=== PATIENT | male | born 1970 | race Caucasian/White ===

== ENCOUNTER 2018-04-24 23:24 | Inpatient (IN) | payer BC ==
[2018-04-24] MEDS ORDERED: SODIUM CHLORIDE 0.9% 1,000 ML IV STA (23:29)
--- NOTE | 2018-04-24 23:34 | ED ---
Chest Pain HPI - General Stated Complaint: Chest Pain Time Seen by Provider: 04/24/18 23:29 Source: patient, family Mode of arrival: EMS Limitations: no limitations - History of Present Illness Initial Comments: Raman Kelly is a 48-year-old gentleman who presents to the emergency department today from an outside facility for evaluation of chest pain and elevated troponin. He reports that he was sitting relaxing talking on the telephone when he developed left-sided chest pain. He reports he thought the pain would go away so he waited approximately an hour before seeking care at an outside hospital. Evaluation at the outside hospital revealed a normal chest x-ray, mildly elevated troponin. Patient does have a history of hypertension hyperlipidemia and cigarette smoking given his age and risk factors he was placed on heparin for possible N STEMI. Patient was treated with oral doses of fentanyl however nitro was not given due to persistent hypotension. Patient was transferred to our facility for evaluation. Patient reports that his pain improves with fentanyl but returns within one hour. Pain is described as left- sided pressure and discomfort. Pain when his severe is 8 out of 10 intensity and after fentanyl will decrease to approximately 3 or 4. He is never pain- free. denies any associated symptoms including shortness of breath, lightheadedness, diaphoresis or abdominal pain or change in bowel or bladder habits. - Related Data Allergies Allergy/AdvReac Type Severity Reaction Status Date / Time No Known Allergies Allergy Verified 04/24/18 23:33 Review of Systems ROS Statement: Those systems with pertinent positive or pertinent negative responses have been documented in the HPI. ROS Other: All systems not noted in ROS Statement are negative. EKG Findings - EKG Comments: EKG Findings:: EKG obtained at 2331, rate is 53, rhythm is sinus bradycardia, there is a normal axis, there are normal intervals, there are no acute ST elevations or depressions, there is no evidence of acute ischemia or infarction. A repeat. Due to some wandering baseline a repeat EKG was obtained at 1132, rate is 53, again rhythm is sinus bradycardia there is normal axis normal intervals no acute ST elevations or depressions or evidence of acute ischemia or infarction. Due to persistent chest pain a repeat EKG was obtained at 1:22 AM, again sinus bradycardia with a rate of 50, normal axis normal intervals no acute ST elevations or depressions no evidence of acute ischemia or infarction Past Medical History Past Medical History: Hypertension History of Any Multi-Drug Resistant Organisms: None Reported Past Surgical History: No Surgical Hx Reported Past Psychological History: No Psychological Hx Reported Smoking Status: Current every day smoker Past Alcohol Use History: None Reported Past Drug Use History: None Reported - Past Family History Father History Unknown: Yes Family Medical History: Unable to Obtain Mother Family Medical History: COPD, Hyperlipidemia General Exam Limitations: no limitations Course Vital Signs 04/24/18 04/24/18 04/24/18 23:27 23:30 23:40 Temperature 98.2 F Pulse Rate 58 L 49 L Respiratory 16 14 Rate Blood Pressure 95/57 95/57 O2 Sat by Pulse 97 94 L 97 Oximetry Chest Pain MDM - MDM Patient care was discussed with transferring physician - 48-year-old male with multiple risk factors presenting with chest pain and mildly elevated troponin started on heparin given aspirin, nitro was held due to hypotension Patient with worsening chest pain and route to the hospital was treated with fentanyl, upon arrival chest pain has improved Repeat labs were ordered Patient with recurrent episodes of chest pain treated with fentanyl, morphine and nitro held due to hypotension Repeat troponin was mildly elevated at 0.6 Patient with recurrent chest pain Patient care was discussed with cardiology on-call Dr. Brizuela at this time I have a high suspicion for acute coronary syndrome despite the patient not having EKG changes. Dr. Brizuela is agreeable with activation of the Dismantler for unstable angina. Disposition Clinical Impression: NSTEMI (non-ST elevated myocardial infarction), Unstable angina Disposition: ADMITTED IP TO THIS [facility] Condition: Serious Time of Disposition: 07:28
[2018-04-24 23:56] LABS: Basophils % (A) 0 %; Eosinophils # (A) 0.1 k/uL (0-0.7); Eosinophils % (A) 1 %; HCT 51.5 % (39.0-53.0); HGB 16.9 gm/dL (13.0-17.5); Lymphocytes # (A) 1.8 k/uL (1.0-4.8); Lymphocytes % (A) 11 %; MCHC 32.7 g/dL (31.0-37.0); MCV 94.8 fL (80.0-100.0); Mean Platelet Volume 8.3; Monocytes # (A) 0.5 k/uL (0-1.0); Monocytes % (A) 3 %; Neutrophils # (A) 14.8 k/uL (1.3-7.7); Neutrophils % (A) 85 %; Platelet Count 277 k/uL (150-450); RBC 5.43 m/uL (4.30-5.90); RDW 14.9 % (11.5-15.5); WBC 17.3 k/uL (3.8-10.6)
[2018-04-25 00:05] LABS: Partial Thromboplastin Time 49.1 sec (22.0-30.0); Prothrombin Time 10.8 sec (9.0-12.0)
[2018-04-25 00:07] LABS: ALT 28 U/L (21-72); AST 32 U/L (17-59); Albumin 3.4 g/dL (3.5-5.0); Alkaline Phosphatase 63 U/L (38-126); Anion Gap 8 mmol/L; Blood Urea Nitrogen 21 mg/dL (9-20); Calcium 8.6 mg/dL (8.4-10.2); Carbon Dioxide 18 mmol/L (22-30); Chloride 114 mmol/L (98-107); Glucose 116 mg/dL (74-99); Magnesium 1.9 mg/dL (1.6-2.3); Sodium 140 mmol/L (137-145); Total Bilirubin 0.6 mg/dL (0.2-1.3); Total Protein 5.9 g/dL (6.3-8.2)
[2018-04-25] MEDS ORDERED: HEPARIN SODIUM,PORCINE 5,000 UNIT/ML 1 ML VIAL IV PRN (00:09)
[2018-04-25] MEDS ORDERED: HEPARIN SOD,PORK IN 0.45% NACL 25,000 UNIT in 0.45% NACL 1 250ML.BAG IV SCH (00:15)
[2018-04-25 00:20] LABS: Potassium 4.9 mmol/L (3.5-5.1)
[2018-04-25 00:30] LABS: Creatine Kinase MB 17.6 ng/mL (0.0-2.4)
[2018-04-25 00:32] LABS: Troponin I 0.697 ng/mL (0.000-0.034)
[2018-04-25] MEDS ORDERED: fentaNYL (PF) 50 MCG/ML 2 ML AMP IVP STA (00:53)
[2018-04-25] MEDS ORDERED: NALOXONE 0.4 MG/ML 1 ML VIAL IV PRN (02:15)
[2018-04-25] MEDS ORDERED: VERAPAMIL 2.5 MG/ML 2 ML AMP ONE (02:27)
[2018-04-25] MEDS ORDERED: LIDOCAINE 1% INJ 10MG/ML (20 ML MDV) ONE (02:27)
[2018-04-25] MEDS ORDERED: HEPARIN SODIUM 1,000 UN/ML (10ML VL) ONE (02:27)
[2018-04-25] MEDS ORDERED: IV FLUID CONTINUATION 1,000 ML IV ONE (02:50)
[2018-04-25] MEDS ORDERED: MIDAZOLAM 2 MG/2 ML VIAL IV ONE (02:54)
[2018-04-25] MEDS ORDERED: LIDOCAINE 1% INJ 10MG/ML (20 ML MDV) SQ ONE (02:56)
[2018-04-25] MEDS ORDERED: fentaNYL (PF) 50 MCG/ML 2 ML AMP ONE (02:59)
[2018-04-25] MEDS: VERAPAMIL SYRINGE (5 MG/10 ML) INTRAARTER ONE ×2 (03:01→03:25)
[2018-04-25] MEDS ORDERED: fentaNYL (PF) 50 MCG/ML 2 ML AMP IV ONE (03:03)
[2018-04-25] MEDS ORDERED: CLOPIDOGREL 75 MG TAB ONE (03:10)
[2018-04-25] MEDS ORDERED: BIVALIRUDIN BOLUS 250 MG/50 ML IV ONE (03:11)
[2018-04-25] MEDS ORDERED: CLOPIDOGREL 75 MG TAB PO ONE (03:11)
[2018-04-25] MEDS ORDERED: BIVALIRUDIN 250 MG in SODIUM CHLORIDE 0.9% 50 ML IV ONE (03:11)
[2018-04-25] MEDS ORDERED: NITROGLYCERIN 1000MCG/10ML SYRINGE INTRACORON ONE (03:16)
[2018-04-25] MEDS ORDERED: IOPAMIDOL-370 125ML BTL INJ ONE (03:26)
[2018-04-25] MEDS ORDERED: ATROPINE SULFATE 0.1 MG/ML 10ML SYRINGE IV PRN (03:34)
[2018-04-25] MEDS ORDERED: NITROGLYCERIN SL TABS 0.4 MG TAB SUBLINGUAL PRN (03:34)
[2018-04-25] MEDS ORDERED: RX INFO: IV CONTRAST WAS GIVEN 1 EACH MISC MISCELLANE PRN (03:34)
[2018-04-25] MEDS ORDERED: ZOLPIDEM 5 MG TAB PO PRN (03:34)
[2018-04-25] MEDS ORDERED: SODIUM CHLORIDE 0.9% 1,000 ML IV SCH (03:45)
--- NOTE | 2018-04-25 03:48 | P.CRDCN ---
History of Present Illness Consult date: 04/25/18 Chief complaint: Chest pain History of present illness: This is a 48-year-old gentleman with a past medical history significant for hypertension as well as significant history of smoking presented to the emergency room complaining of chest discomfort. He was in his usual state of health until earlier today when he started experiencing discomfort in the chest, as a pressure across the chest, without any radiation to the arm or neck or shoulders, but it was associated with cold sweats as well as shortness of breath. No dizziness or lightheadedness. And no syncope. Because of the persistent the chest discomfort he decided to come to the emergency room. In the emergency room, the patient was hypotensive and bradycardic. The patient initial troponin came in to be slightly dehydrated and because of that he was started on heparin IV. The EKG did not show any ischemic ST or T-wave abnormalities beside only nonspecific changes in the high lateral leads. The patient continues to have a chest discomfort in spite of the nitroglycerin as well as pain medication. Because of that we decided to take the patient to cardiac clinical lab technologist. He underwent a heart catheterization and that revealed severe disease involving the distal right coronary artery which is a dominant vessel with a plaque rupture and thrombus formation involving the distal RCA. I did successful aspiration thrombectomy with extraction of large amount of thrombus from the distal RCA and subsequently successful stenting of the distal RCA using a drug-eluting stent with a good angiographic results by the end. The procedure was performed from the right radial approach. By the end of the procedure, the patient was chest pain-free with improvement in the blood pressure as well as heart rate. Past Medical History Past Medical History: Hypertension History of Any Multi-Drug Resistant Organisms: None Reported Past Surgical History: No Surgical Hx Reported Past Psychological History: No Psychological Hx Reported Smoking Status: Current every day smoker Past Alcohol Use History: None Reported Past Drug Use History: None Reported Medications and Allergies Allergies Allergy/AdvReac Type Severity Reaction Status Date / Time No Known Allergies Allergy Verified 04/24/18 23:33 Physical Exam Vitals: Vital Signs Temp Pulse Resp BP Pulse Ox 04/25/18 03:09 98.0 F 58 L 16 91/58 97 04/24/18 23:40 49 L 14 95/57 97 04/24/18 23:30 94 L 04/24/18 23:27 98.2 F 58 L 16 95/57 97 Intake and Output 04/24/18 04/24/18 04/25/18 14:59 22:59 06:59 Intake Total 528.8 Balance 528.8 Intake: IV 528.8 Other: Weight 83.915 kg - Constitutional General appearance: no acute distress - Respiratory Respiratory: bilateral: diminished - Cardiovascular Rhythm: regular Heart sounds: normal: S1, S2 Results 04/24/18 23:35 04/24/18 23:35 Cardiac Enzymes 04/24/18 04/24/18 Range/Units 23:35 23:35 AST 32 (17-59) U/L CK-MB (CK-2) 17.6 H (0.0-2.4) ng/mL Troponin I 0.697 H* (0.000-0.034) ng/mL Coagulation 04/24/18 Range/Units 23:35 PT 10.8 (9.0-12.0) sec APTT 49.1 H (22.0-30.0) sec CBC 04/24/18 Range/Units 23:35 WBC 17.3 H (3.8-10.6) k/uL RBC 5.43 (4.30-5.90) m/uL Hgb 16.9 (13.0-17.5) gm/dL Hct 51.5 (39.0-53.0) % Plt Count 277 (150-450) k/uL Comprehensive Metabolic Panel 04/24/18 Range/Units 23:35 Sodium 140 (137-145) mmol/L Potassium 4.9 (3.5-5.1) mmol/L Chloride 114 H (98-107) mmol/L Carbon Dioxide 18 L (22-30) mmol/L BUN 21 H (9-20) mg/dL Creatinine 0.90 (0.66-1.25) mg/dL Glucose 116 H (74-99) mg/dL Calcium 8.6 (8.4-10.2) mg/dL AST 32 (17-59) U/L ALT 28 (21-72) U/L Alkaline Phosphatase 63 (38-126) U/L Total Protein 5.9 L (6.3-8.2) g/dL Albumin 3.4 L (3.5-5.0) g/dL Current Medications Generic Name Dose Route Start Last Admin Trade Name Freq PRN Reason Stop Dose Admin Al Hydroxide/Mg Hydroxide 30 ml 04/25/18 03:34 Maalox PO Q4HR PRN Heartburn Aspirin 81 mg 04/25/18 09:00 Aspirin PO DAILY [facility] Atorvastatin Calcium 80 mg 04/25/18 21:00 Lipitor PO HS [facility] Atropine Sulfate 0.5 mg 04/25/18 03:34 Atropine IV ONCE PRN Symptomatic Bradycardia Clopidogrel Bisulfate 75 mg 04/26/18 03:34 Plavix PO DAILY [facility] Heparin Sodium (Porcine) 0 unit 04/25/18 00:09 Heparin IV PER PROTOCOL PRN Low PTT Protocol Sodium Chloride 1,000 mls @ 100 mls/hr 04/24/18 23:29 04/24/18 23:46 Saline 0.9% IV 04/25/18 09:28 100 mls/hr .Q10H STA Administration Heparin Sodium/Sodium Chloride 250 mls @ 10 mls/hr 04/25/18 00:15 04/25/18 00 :27 25,000 unit/ Sodium Chloride IV 11.9 units/kg/hr .Q24H TIFFANIE 9.98 mls/hr Administration Protocol Sodium Chloride 1,000 mls @ 100 mls/hr 04/25/18 03:45 Saline 0.9% IV 04/25/18 09:46 .Q10H [facility] Miscellaneous Information 1 each 04/25/18 03:34 Rx Info: Iv Contrast Was Given MISCELLANE 04/27/18 03:34 DAILY PRN Per Protocol Naloxone HCl 0.2 mg 04/25/18 02:15 Narcan IV Q2M PRN Opioid Reversal Nitroglycerin 0.4 mg 04/25/18 03:34 Nitrostat SUBLINGUAL Q5M PRN Chest Pain Zolpidem Tartrate 5 mg 04/25/18 03:34 Ambien PO HS PRN Insomnia Intake and Output 04/24/18 04/24/18 04/25/18 14:59 22:59 06:59 Intake Total 528.8 Balance 528.8 Intake: IV 528.8 Other: Weight 83.915 kg Patient Weight 04/25/18 06:59 Weight 83.915 kg 04/24/18 23:35 04/24/18 23:35 Assessment and Plan Assessment: Assessment #1 acute non-ST deviation myocardial infarction #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 I did not start the patient on any beta benedict or ORTIZ inhibitor at this point because of the marginally low blood pressure. #4 an echocardiogram was Doppler #5 follow-up with the patient. Thank you for allowing us participate in his care. We will continue following up with him
[2018-04-25] MEDS: ASPIRIN 81 MG PO SCH (08:05)
--- NOTE | 2018-04-25 09:45 | CC ---
CARDIAC CATHETERIZATION REPORT DATE OF SERVICE: 04/25/2018 CARDIAC CATHETERIZATION/PERCUTANEOUS CORONARY INTERVENTION: PERFORMING PHYSICIAN: Jairo Brizuela MD, radiology clerk. PROCEDURE PERFORMED: 1. Selective right and left coronary angiogram. 2. Left heart catheterization. 3. Aspiration thrombectomy from the distal right coronary artery with extraction of large thrombus. 4. Successful stenting of the distal right coronary artery using 3.0 x 23 mm Xience LYNDA with an excellent angiographic results and reduction of stenosis from 90% to 0%. INDICATIONS: This is a pleasant 48-year-old gentleman with history of hypertension as well as history of smoking, who presented to the hospital complaining of chest discomfort started earlier today. The troponin came in to be slightly elevated. No ischemic ST or T-wave abnormalities shown on the EKG. Because of the persistent chest discomfort, the patient was taken to the cardiac labor and employment paralegal. APPROACH: Right radial artery. COMPLICATION: None. LEVEL OF SEDATION: Moderate with sedation length of 35 minutes. PROCEDURE DESCRIPTION: After obtaining an informed consent, the patient was brought to cardiac labor and employment paralegal. The right radial artery was cannulated using micropuncture technique. Micropuncture wire passed easily. Then I placed a 6-Azerbaijani sheath in the right radial artery. I gave the patient 2 mg of verapamil IA through the sheath. I did selective right and left coronary angiogram using JR4 and JL3.5 catheters. Left heart catheterization was performed using the JR4 catheter which flipped into the LV then I did pullback across the aortic valve. After that I did after intervene on the right coronary artery. Please see a separate paragraph for that. SELECTIVE CORONARY ANGIOGRAM: 1. The right coronary artery is a large caliber vessel and it is a dominant vessel. The proximal and mid RCA are angiographically normal. The RCA in the midportion gives rise into a large PDA branch which appeared to be angiographically normal. The RCA distally has a tight lesion appeared to be in the range of 90% to 95%. with a large thrombus burden seen as well. This is just before the RCA bifurcates into PDA and PLV branches. 2. The left main is angiographically normal. It bifurcates into the circumflex and left anterior descending artery. 3. The left circumflex is a large caliber vessel. It is a nondominant vessel. The proximal circumflex is normal. It gives rise into a large OM branch which bifurcates into 2 separate branches with mild disease involving that OM1. The circumflex continues after that as a moderate caliber vessel in the AV groove. 4. The left anterior descending artery: The proximal LAD appeared to be angiographically normal. It gives rise into a large first diagonal branch which has intermediate lesion in the proximal portion. The mid LAD and distal LAD are angiographically normal. HEMODYNAMICS: The left ventricular end-diastolic pressure was 12 mmHg without significant gradient across the aortic valve. PCI OF THE RCA: Anticoagulation was initiated using Angiomax. Subsequently I did I did engage the RCA using JR4 guide. A run-through wire was used to wire the right coronary artery. After that I did aspiration thrombectomy from the RCA using an export catheter and I was able to extract significant amount of plaque. After that, I did direct stenting of the lesion using 3.0 x 23 mm Xience drug-eluting stent where the stent was positioned under fluoroscopy guidance and deployed under 14 atmospheres for 20 seconds with the following angiogram showing good angiographic results and reduction of stenosis from 80% to 0%. The procedure was completed without any complication. CONCLUSION: 1. Acute non-ST elevation myocardial infarction. 2. Plaque rupture and thrombus formation involving the distal right coronary artery. 3. Successful stenting of the distal right coronary artery using 3.0 x 23 mm Xience drug-eluting stent with good angiographic results. POSTPROCEDURE MANAGEMENT: 1. Dual anti-platelet therapy. 2. Risk factor modifications. 3. Follow up with the patient. 4. Smoking cessation as well. MMODL / IJN: [id number] /
[2018-04-25] MEDS ORDERED: SODIUM CHLORIDE 0.9% 1,000 ML IV ONE (12:23)
--- NOTE | 2018-04-25 12:56 | XR ---
EXAMINATION TYPE: XR chest 1V portable DATE OF EXAM: 04/25/2018 COMPARISON: NONE HISTORY: Chest pain TECHNIQUE: Single frontal view of the chest is obtained. FINDINGS: There is patchy density right lower lobe which may reflect developing infiltrate. Correlate clinicall y. The cardiac silhouette size is within normal limits. The osseous structures are intact. IMPRESSION: 1. There is patchy density right lower lobe which may reflect developing infiltrate. Correlate clini amanda.
[2018-04-25 13:08] LABS: Basophils # (A) 0.1 k/uL (0-0.2); Basophils % (A) 0 %; Eosinophils # (A) 0.2 k/uL (0-0.7); Eosinophils % (A) 1 %; HCT 48.3 % (39.0-53.0); HGB 15.9 gm/dL (13.0-17.5); Lymphocytes # (A) 2.7 k/uL (1.0-4.8); Lymphocytes % (A) 16 %; MCH 31.6 pg (25.0-35.0); MCHC 32.8 g/dL (31.0-37.0); MCV 96.1 fL (80.0-100.0); Mean Platelet Volume 8.6; Monocytes # (A) 0.7 k/uL (0-1.0); Monocytes % (A) 4 %; Neutrophils # (A) 13.6 k/uL (1.3-7.7); Neutrophils % (A) 77 %; Platelet Count 232 k/uL (150-450); RBC 5.02 m/uL (4.30-5.90); WBC 17.6 k/uL (3.8-10.6)
[2018-04-25 13:16] LABS: ALT 38 U/L (21-72); AST 104 U/L (17-59); Albumin 3.1 g/dL (3.5-5.0); Alkaline Phosphatase 63 U/L (38-126); Anion Gap 5 mmol/L; Blood Urea Nitrogen 18 mg/dL (9-20); Calcium 8.5 mg/dL (8.4-10.2); Carbon Dioxide 19 mmol/L (22-30); Chloride 115 mmol/L (98-107); Glucose 88 mg/dL (74-99); Potassium 4.5 mmol/L (3.5-5.1); Sodium 139 mmol/L (137-145); Total Bilirubin 0.6 mg/dL (0.2-1.3); Total Protein 5.5 g/dL (6.3-8.2)
[2018-04-25] MEDS ORDERED: NICOTINE 21MG/24HR PATCH TRANSDERM STA (14:03)
[2018-04-25] MEDS ORDERED: LEVOFLOXACIN 500MG-D5W PMX 500 MG in DEXTROSE/WATER 1 100ML.BAG IVPB SCH (15:00)
[2018-04-25] MEDS: SODIUM CHLORIDE 0.9% 1,000 ML IV SCH ×3 (15:04→22:30)
[2018-04-25] MEDS ORDERED: ACETAMINOPHEN TAB 325 MG TAB PO PRN (15:23)
[2018-04-25] MEDS: PANTOPRAZOLE 40 MG TABLET PO SCH (16:28)
--- NOTE | 2018-04-25 16:37 | ECHOF ---
Referral Reason:hypotension MEASUREMENTS -------- HEIGHT: 177.8 cm WEIGHT: 83.5 kg BP: 80/48 IVSd: 1.2 cm (0.6 - 1.1) LVIDd: 5.4 cm (3.9 - 5.3) LVPWd: 1.2 cm (0.6 - 1.1) IVSs: 1.4 cm LVIDs: 3.9 cm LVPWs: 1.4 cm RVIDd: 2.7 cm (< 3.3) LAESV Index (A-L): 19.14 ml/m Ao Diam: 3.5 cm (2.0 - 3.7) AV Cusp: 2.0 cm (1.5 - 2.6) EPSS: 0.7 cm MV E Santi: 0.99 m/s MV DecT: 243 ms MV A Santi: 0.48 m/s MV E/A Ratio: 2.06 RAP: 15.00 mmHg RVSP: 22.25 mmHg MV EF SLOPE: 125.07 mm/s (70 - 150) MV EXCURSION: 2.22 cm (> 18.000) FINDINGS -------- Resting bradycardia (HR<60bpm). This was a technically adequate study. The left ventricular size is normal. There is mild concentric left ventricular hypertrophy. Overa ll left ventricular systolic function is normal with, an EF between 55 - 60 %. The right ventricle is normal in size and function. Normal LA size by volume 22+/-6 ml/m2. The right atrium is normal in size. Aortic valve is trileaflet and is mildly thickened. There is no evidence of aortic regurgitation. There is no evidence of aortic stenosis. The mitral valve leaflets are mildly thickened. There is trace to mild mitral regurgitation. Trace tricuspid regurgitation present. Right ventricular systolic pressure is normal at < 35 mmHg. There is no evidence of pulmonary hypertension. Trace/mild (physiologic) pulmonic regurgitation. The aortic root size is normal. The inferior vena cava is dilated with poor inspiratory collapse which is consistent with estimated r ight atrial pressure of 20 mmHg. There is no pericardial effusion. CONCLUSIONS -------- 1. Resting bradycardia (HR<60bpm). 2. This was a technically adequate study. 3. The left ventricular size is normal. 4. There is mild concentric left ventricular hypertrophy. 5. Overall left ventricular systolic function is normal with, an EF between 55 - 60 %. 6. Normal LA size by volume 22+/-6 ml/m2. 7. Aortic valve is trileaflet and is mildly thickened. 8. The mitral valve leaflets are mildly thickened. 9. There is trace to mild mitral regurgitation. 10. Trace tricuspid regurgitation present. 11. Right ventricular systolic pressure is normal at < 35 mmHg. 12. There is no evidence of pulmonary hypertension. 13. Trace/mild (physiologic) pulmonic regurgitation. 14. The aortic root size is normal. 15. The inferior vena cava is dilated with poor inspiratory collapse which is consistent with estimat ed right atrial pressure of 20 mmHg. 16. There is no pericardial effusion. [employer]: Dm Toscano RDCS
[2018-04-25] MEDS: MAG HYDROX/AL HYDROX/SIMETH 30 ML CUP PO PRN (20:35)
[2018-04-25] MEDS: DOCUSATE 100 MG CAP PO PRN (20:35)
[2018-04-25] MEDS: ATORVASTATIN 80 MG TAB PO SCH (20:35)
--- NOTE | 2018-04-25 20:57 | XR ---
EXAMINATION TYPE: XR abdomen 1V DATE OF EXAM: 04/25/2018 COMPARISON: NONE HISTORY: Abdominal pain TECHNIQUE: 2 views supine FINDINGS: There is no sign of intestinal obstruction or pneumoperitoneum. Fecal pattern is normal. Shamika ng bases are clear of consolidation. There is some atelectasis in the medial left lower lobe.. There are no pathologic calcifications over the kidneys. IMPRESSION: Nonacute abdomen.
--- NOTE | 2018-04-25 22:24 | P.HPIM ---
History of Present Illness H&P Date: 04/25/18 Chief Complaint: Chest pain Patient is a 48 old male with a known history of hypertension, hyperlipidemia and smoking initially presented to ER at an outside hospital facility with complaints of chest pain. Patient says that he was sitting and talking on the phone and he developed sudden left-sided chest pain. No radiation. Associated with sweating and lightheadedness. No shortness of breath. Patient thought pain would get away and waited for approximately an hour and presented to hospital.Evaluation at the outside hospital revealed a normal chest x-ray, mildly elevated troponin. Patient was transferred to [facility] for further evaluation. Patient was treated with doses of fentanyl and nitro. Patient was hypotensive while in the ER. Patient was seen by cardiology and immediately taken to cardiac catheterization. Patient underwent RCA stenting. Currently patient is hypotensive. Denied any chest pain now Patient is complaining of right lower chest pain and epigastric pain. Patient was given a dose of Maalox. Patient continues to have pain which worsens with deep breathing. Chest x-ray showed right lower lobe patchy density possible early infiltrate. WBC 17.6 on admission Patient does not have any fever or chills. No cough or sputum production. No recent illnesses. No sick contacts at home. No recent travel. Patient is still hypotensive when he was transferred to medical floor. Patient was given a fluid bolus and is being continued on IV fluids in the form of normal saline. Review of Systems Constitutional: Patient denies any fever or chills . No generalized weakness or weight loss. Abdomen: No nausea or vomiting. No diarrhea. Epigastric abdominal pain Cardiovascular: Patient denies any chest pain or short of breath no palpitations. No leg swelling Respiratory: patient denied any cough is from production. No shortness of breath Neurologic: Patient denied any numbness or tingling headache. Musculoskeletal: Patient denies any complaints of joint swelling or deformity. Skin: Negative Psychiatric: Negative Endocrine: No heat or cold intolerance. No recent weight gain. Genitourinary: No dysuria or hematuria. All other 14 point ROS negative except the above Past Medical History Past Medical History: Hypertension History of Any Multi-Drug Resistant Organisms: None Reported Past Surgical History: No Surgical Hx Reported Additional Past Surgical History / Comment(s): pt stated multiple bone fractures with resetting and casts, no surgical procedures. Past Psychological History: No Psychological Hx Reported Smoking Status: Current every day smoker Past Alcohol Use History: None Reported Past Drug Use History: None Reported - Past Family History Father History Unknown: Yes Family Medical History: Unable to Obtain Mother Family Medical History: COPD, Hyperlipidemia Medications and Allergies Home Medications Medication Instructions Recorded Confirmed Type No Known Home Medications 04/25/18 04/25/18 History Allergies Allergy/AdvReac Type Severity Reaction Status Date / Time No Known Allergies Allergy Verified 04/25/18 07:48 Physical Exam Vitals: Vital Signs Temp Pulse Pulse Resp BP BP Pulse Ox 04/25/18 11:45 98.5 F 56 L 16 80/48 94 L 04/25/18 07:50 98.4 F 56 L 14 80/48 92 L 04/25/18 06:19 53 L 15 91/47 94 L 04/25/18 05:19 59 L 16 98/57 97 04/25/18 04:49 55 L 15 97/54 97 04/25/18 04:19 61 15 98/54 98 04/25/18 04:04 97.8 F 61 15 95/52 98 04/25/18 04:00 97.8 F 60 15 97/56 96 04/25/18 03:55 97.8 F 96 16 97/56 96 04/25/18 03:09 98.0 F 58 L 16 91/58 97 04/24/18 23:40 49 L 14 95/57 97 04/24/18 23:30 94 L 04/24/18 23:27 98.2 F 58 L 16 95/57 97 Intake and Output 04/24/18 04/25/18 04/25/18 22:59 06:59 14:59 Intake Total 1528.8 Balance 1528.8 Intake: IV 528.8 Intake, IV Titration 1000 Amount Sodium Chloride 0.9% 1, 1000 000 ml @ 100 mls/hr IV . Q10H [facility] Rx#:[id number] Other: Voiding Method Toilet Toilet # Voids 1 0 Weight 83.91 kg 78.4 kg PHYSICAL EXAMINATION: Patient is lying in the bed comfortably, no acute distress, awake alert and oriented.. HEENT: Normocephalic. Neck is supple. Pupils reactive. Nostrils clear. Oral cavity is moist. Ears reveal no drainage. Neck reveals no JVD, carotid bruits, or thyromegaly. CHEST EXAMINATION: Trachea is central. Symmetrical expansion. Lung valle clear to auscultation and percussion. CARDIAC: Normal S1, S2 with no gallops. No murmurs ABDOMEN: Soft. Bowel sounds normal. No organomegaly. No abdominal bruits. Extremities: reveal no edema. No clubbing or cyanosis Neurologically awake, alert, oriented x3 with well-coordinated movements. No focal deficits noted Skin: No rash or skin lesions. Psychiatric: Coperative. Nonsuicidal Musculoskeletal: No joint swelling or deformity. Normal range of motion. Results CBC & Chem 7: 04/25/18 12:35 04/25/18 12:35 Labs: Abnormal Lab Results - Last 24 Hours (Table) 04/24/18 04/24/18 04/24/18 Range/Units 23:35 23:35 23:35 WBC 17.3 H (3.8-10.6) k/uL Neutrophils # 14.8 H (1.3-7.7) k/uL APTT (22.0-30.0) sec Chloride 114 H (98-107) mmol/L Carbon Dioxide 18 L (22-30) mmol/L BUN 21 H (9-20) mg/dL Glucose 116 H (74-99) mg/dL AST (17-59) U/L CK-MB (CK-2) 17.6 H (0.0-2.4) ng/mL Troponin I 0.697 H* (0.000-0.034) ng/mL Total Protein 5.9 L (6.3-8.2) g/dL Albumin 3.4 L (3.5-5.0) g/dL 04/24/18 04/25/18 04/25/18 Range/Units 23:35 05:34 12:35 WBC 17.6 H (3.8-10.6) k/uL Neutrophils # 13.6 H (1.3-7.7) k/uL APTT 49.1 H 38.8 H (22.0-30.0) sec Chloride (98-107) mmol/L Carbon Dioxide (22-30) mmol/L BUN (9-20) mg/dL Glucose (74-99) mg/dL AST (17-59) U/L CK-MB (CK-2) (0.0-2.4) ng/mL Troponin I (0.000-0.034) ng/mL Total Protein (6.3-8.2) g/dL Albumin (3.5-5.0) g/dL 12/30/18 Range/Units 12:35 WBC (3.8-10.6) k/uL Neutrophils # (1.3-7.7) k/uL APTT (22.0-30.0) sec Chloride 115 H (98-107) mmol/L Carbon Dioxide 19 L (22-30) mmol/L BUN (9-20) mg/dL Glucose (74-99) mg/dL AST 104 H (17-59) U/L CK-MB (CK-2) (0.0-2.4) ng/mL Troponin I (0.000-0.034) ng/mL Total Protein 5.5 L (6.3-8.2) g/dL Albumin 3.1 L (3.5-5.0) g/dL Thrombosis Risk Factor Assmnt - DVT/VTE Prophylaxis DVT/VTE Prophylaxis: Pharmacologic Prophylaxis ordered - Choose All That Apply Any of the Below Risk Factors Present?: Yes Each Factor Represents 1 point: Acute AR, Age 41-60 years Other Risk Factors: No Other congenital or acquired thrombophilia - If yes, enter type in comment: No Thrombosis Risk Factor Assessment Total Risk Factor Score: 2 Thrombosis Risk Factor Assessment Level: Low Risk Assessment and Plan Assessment: Acute non-ST elevated [place] status post cardiac catheterization and stent placement to RCA Coronary artery disease Possible right lower lobe pneumonia with early infiltrate on chest x-ray Epigastric abdominal pain Hypertension Hyperlipidemia Ongoing nicotine addiction DVT prophylaxis plan: Continue with aspirin statins and Plavix. Patient will be continued on IV hydration due to hypotension. Continue with PPI. Antibiotics were added in the form of Levaquin. Continue to follow closely. Further recommendations based on the clinical course. Cardiology is on board. Time with Patient: Greater than 30
[2018-04-25 22:29] LABS: Amylase 33 U/L (30-110); Lipase 43 U/L (23-300)
[2018-04-26] MEDS: MAG HYDROX/AL HYDROX/SIMETH 30 ML CUP PO PRN (04:14)
[2018-04-26] MEDS: CLOPIDOGREL 75 MG TAB PO SCH ×2 (04:14→09:32)
[2018-04-26] MEDS: SODIUM CHLORIDE 0.9% 1,000 ML IV SCH ×2 (04:17→06:33)
[2018-04-26] MEDS: PANTOPRAZOLE 40 MG TABLET PO SCH (06:33)
[2018-04-26 06:39] LABS: Basophils # (A) 0.1 k/uL (0-0.2); Basophils % (A) 0 %; Eosinophils # (A) 0.2 k/uL (0-0.7); Eosinophils % (A) 2 %; HCT 50.2 % (39.0-53.0); HGB 16.3 gm/dL (13.0-17.5); Lymphocytes # (A) 1.9 k/uL (1.0-4.8); Lymphocytes % (A) 14 %; MCHC 32.4 g/dL (31.0-37.0); MCV 95.7 fL (80.0-100.0); Mean Platelet Volume 8.5; Monocytes # (A) 0.6 k/uL (0-1.0); Monocytes % (A) 4 %; Neutrophils # (A) 11.2 k/uL (1.3-7.7); Neutrophils % (A) 80 %; Platelet Count 216 k/uL (150-450); RBC 5.24 m/uL (4.30-5.90); WBC 14.1 k/uL (3.8-10.6)
[2018-04-26 06:52] LABS: Anion Gap 3 mmol/L; Blood Urea Nitrogen 13 mg/dL (9-20); Calcium 8.2 mg/dL (8.4-10.2); Carbon Dioxide 19 mmol/L (22-30); Chloride 118 mmol/L (98-107); Glucose 85 mg/dL (74-99); Potassium 4.3 mmol/L (3.5-5.1); Sodium 140 mmol/L (137-145)
[2018-04-26] MEDS: ASPIRIN 81 MG PO SCH (09:32)
[2018-04-26] MEDS: NICOTINE 21MG/24HR PATCH TRANSDERM SCH (09:32)
[2018-04-26] MEDS: METOPROLOL TARTRATE 12.5 MG TAB PO SCH ×2 (10:11→19:39)
--- NOTE | 2018-04-26 11:55 | P.PN ---
Subjective Progress Note Date: 04/26/18 This is a 48-year-old gentleman with past medical history significant for hypertension and history of smoking. He presented to the hospital with a non-Q-wave myocardial infarction, he was taken to the cardiac catheterization lab by Dr. Taylor where he underwent aspiration thrombectomy with extraction of a large thrombus with successful stenting of the distal right coronary artery. Patient had been quite hypotensive and for this reason was not initiated on a beta benedict. He was seen and examined this morning, denied any chest pain and is breathing overall has been stable. Echocardiogram with Doppler study was performed which revealed an ejection fraction of 55-60%. Blood pressure this morning 108/60, heart rate in the 70s, 92% on room air. Patient feels well this morning, he denies any chest pain or difficulty in breathing, no dizziness or lightheadedness. White blood cell count 14.1, hemoglobin 16.3, platelet count 216. Sodium 140, potassium 4.3, BUN 13, creatinine 0.8. Objective - Vital Signs Vital signs: Vital Signs Temp 97.7 F 04/26/18 08:00 Pulse 77 04/26/18 08:00 Resp 18 04/26/18 08:00 BP 129/78 04/26/18 08:00 Pulse Ox 91 L 04/26/18 08:00 Intake & Output 04/25/18 04/26/18 04/26/18 18:59 06:59 18:59 Intake Total 240 1600 Output Total 200 600 300 Balance 40 1000 -300 Weight 78.4 kg 81.8 kg Intake: Intake, IV Titration 1600 Amount Sodium Chloride 0.9% 1, 1600 000 ml @ 150 mls/hr IV . Q6H40M [facility] Rx#:[id number] Oral 240 Output: Urine 200 600 300 Other: Voiding Method Toilet Toilet Toilet # Voids 0 - Exam PHYSICAL EXAMINATION: GENERAL: 48-year-old gentleman in no acute distress at the time of my examination HEENT: Head is atraumatic, normocephalic. Pupils equal, round. Sclera anicteric. Conjunctiva are clear. Mucous membranes of the mouth are moist. Neck is supple. There is no elevated jugular venous pressure. No carotid bruit is heard. HEART EXAMINATION: Heart S1, S2 normal. No murmur or gallop heard. CHEST EXAMINATION: Lungs reveal decreased air exchange throughout. ABDOMEN: Soft, nontender. Bowel sounds are heard. No organomegaly noted. EXTREMITIES: 2+ peripheral pulses with no evidence of peripheral edema and no calf tenderness noted. Right radial site clean and dry, good distal pulse. NEUROLOGIC patient is awake, alert and oriented 3 . . - Labs CBC & Chem 7: 04/26/18 05:46 04/26/18 05:46 Labs: Abnormal Lab Results - Last 24 Hours (Table) 04/25/18 04/25/18 04/26/18 Range/Units 12:35 12:35 05:46 WBC 17.6 H 14.1 H (3.8-10.6) k/uL Neutrophils # 13.6 H 11.2 H (1.3-7.7) k/uL Chloride 115 H (98-107) mmol/L Carbon Dioxide 19 L (22-30) mmol/L Calcium (8.4-10.2) mg/dL AST 104 H (17-59) U/L Total Protein 5.5 L (6.3-8.2) g/dL Albumin 3.1 L (3.5-5.0) g/dL 04/26/18 Range/Units 05:46 WBC (3.8-10.6) k/uL Neutrophils # (1.3-7.7) k/uL Chloride 118 H (98-107) mmol/L Carbon Dioxide 19 L (22-30) mmol/L Calcium 8.2 L (8.4-10.2) mg/dL AST (17-59) U/L Total Protein (6.3-8.2) g/dL Albumin (3.5-5.0) g/dL Microbiology - Last 24 Hours (Table) 04/24/18 23:42 Blood Culture - Preliminary Blood No Growth after 24 hours Assessment and Plan Plan: Assessment and plan #1 non-Q-wave myocardial infarction, status post angioplasty and stenting of the right coronary artery #2 hyperlipidemia #3 nicotine dependence Plan We will start the patient on a low-dose beta benedict at 12-1/2 mg one tablet by mouth twice a day. Patient has been advised to be up ambulating in the hallway today, we will continue to monitor and plan for discharge home in the next 24- 48 hours if stable. DNP note has been reviewed, I agree with a documented findings and plan of care. Patient was seen and examined.
[2018-04-26] MEDS: LEVOFLOXACIN 500 MG TAB PO SCH (15:34)
[2018-04-26 16:08] VITALS: BMI 25.9
[2018-04-26] MEDS: ATORVASTATIN 80 MG TAB PO SCH (19:39)
[2018-04-27] MEDS: DOCUSATE 100 MG CAP PO PRN (06:39)
[2018-04-27] MEDS: PANTOPRAZOLE 40 MG TABLET PO SCH (06:39)
[2018-04-27] MEDS: NICOTINE 21MG/24HR PATCH TRANSDERM SCH (06:40)
[2018-04-27 06:53] LABS: Basophils # (A) 0.1 k/uL (0-0.2); Basophils % (A) 0 %; Eosinophils # (A) 0.2 k/uL (0-0.7); Eosinophils % (A) 2 %; HCT 49.1 % (39.0-53.0); HGB 15.9 gm/dL (13.0-17.5); Lymphocytes # (A) 1.8 k/uL (1.0-4.8); Lymphocytes % (A) 12 %; MCH 30.7 pg (25.0-35.0); MCHC 32.3 g/dL (31.0-37.0); MCV 95.1 fL (80.0-100.0); Mean Platelet Volume 8.1; Monocytes # (A) 0.6 k/uL (0-1.0); Monocytes % (A) 4 %; Neutrophils # (A) 12.3 k/uL (1.3-7.7); Neutrophils % (A) 82 %; Platelet Count 243 k/uL (150-450); RBC 5.17 m/uL (4.30-5.90); RDW 14.9 % (11.5-15.5); WBC 15.1 k/uL (3.8-10.6)
[2018-04-27] MEDS: ASPIRIN 81 MG PO SCH (08:40)
[2018-04-27] MEDS: CLOPIDOGREL 75 MG TAB PO SCH (08:40)
[2018-04-27] MEDS: METOPROLOL TARTRATE 12.5 MG TAB PO SCH (08:41)
[2018-04-27 08:44] VITALS: RESP 16; TEMP 98.5
[2018-04-27] MEDS ORDERED: METOPROLOL TARTRATE 12.5 MG TAB PO STA (10:07)
[2018-04-27] MEDS: LEVOFLOXACIN 500 MG TAB PO SCH (11:19)
[2018-04-27 11:21] VITALS: BP 116/70; PULSE 75
--- NOTE | 2018-04-27 14:51 | P.PN ---
Subjective Patient is doing well. His blood pressure is improved. He is resting comfortably in bed. He has been ablating in the hallways without any dizziness shortness of breath chest discomfort On examination blood pressure 116/70 mmHg pulse rate in the 70s Heart sounds normal breath sounds are clear no rhonchi no crackles No Arctic murmurs no rub Extended is warm no edema impression Patient was admitted with ST elevation RI status post stenting. Initially his blood pressure is low and therefore we held beta blockers for the first day but now he is on beta blockers he also on dual antiplatelet therapy and statins and he may go home today in follow-up with Dr. Taylor within a week Objective - Vital Signs Vital signs: Vital Signs Temp 98.5 F 04/27/18 08:35 Pulse 75 04/27/18 11:15 Resp 16 04/27/18 11:15 BP 116/70 04/27/18 11:15 Pulse Ox 91 L 04/27/18 11:15 Intake & Output 04/26/18 04/27/18 04/27/18 18:59 06:59 18:59 Intake Total 720 960 360 Output Total 300 Balance 420 960 360 Weight 81.8 kg 80 kg Intake: Oral 720 960 360 Output: Urine 300 Other: Voiding Method Toilet Toilet Toilet # Voids 2 1 - Labs CBC & Chem 7: 04/27/18 06:29 04/26/18 05:46 Labs: Abnormal Lab Results - Last 24 Hours (Table) 04/27/18 Range/Units 06:29 WBC 15.1 H (3.8-10.6) k/uL Neutrophils # 12.3 H (1.3-7.7) k/uL Microbiology - Last 24 Hours (Table) 04/24/18 23:42 Blood Culture - Preliminary Blood No Growth after 48 hours
[2018-04-27] MEDS ORDERED: METOPROLOL TARTRATE 25 MG TAB PO SCH (21:00)
--- NOTE | 2018-05-03 21:34 | P.PN ---
Subjective Progress Note Date: 04/26/18 Principal diagnosis: Acute non-ST elevated [place] Patient is a 48 old male with a known history of hypertension, hyperlipidemia and smoking initially presented to ER at an outside hospital facility with complaints of chest pain. Patient says that he was sitting and talking on the phone and he developed sudden left-sided chest pain. No radiation. Associated with sweating and lightheadedness. No shortness of breath. Patient thought pain would get away and waited for approximately an hour and presented to hospital.Evaluation at the outside hospital revealed a normal chest x-ray, mildly elevated troponin. Patient was transferred to [facility] for further evaluation. Patient was treated with doses of fentanyl and nitro. Patient was hypotensive while in the ER. Patient was seen by cardiology and immediately taken to cardiac catheterization. Patient underwent RCA stenting. Currently patient is hypotensive. Denied any chest pain now Patient is complaining of right lower chest pain and epigastric pain. Patient was given a dose of Maalox. Patient continues to have pain which worsens with deep breathing. Chest x-ray showed right lower lobe patchy density possible early infiltrate. WBC 17.6 on admission Patient does not have any fever or chills. No cough or sputum production. No recent illnesses. No sick contacts at home. No recent travel. Patient is still hypotensive when he was transferred to medical floor. Patient was given a fluid bolus and is being continued on IV fluids in the form of normal saline. On 04/26/2018 Patient denied any complaints of chest pain or shortness of breath today. Saturating well on room air. No headache or dizziness or lightheadedness. Echocardiogram with Doppler study was performed which revealed an ejection fraction of 55-60%. Blood pressure is improved. Patient was started on low-dose beta blockers. Cardiology is following. Otherwise no acute overnight issues Current medications reviewed Objective - Vital Signs Vital signs: Vital Signs Temp 98.5 F 04/27/18 08:35 Pulse 75 04/27/18 11:15 Resp 16 04/27/18 11:15 BP 116/70 04/27/18 11:15 Pulse Ox 91 L 04/27/18 11:15 - Exam PHYSICAL EXAMINATION: Patient is lying in the bed comfortably, no acute distress, awake alert and oriented.. HEENT: Normocephalic. Neck is supple. Pupils reactive. Nostrils clear. Oral cavity is moist. Ears reveal no drainage. Neck reveals no JVD, carotid bruits, or thyromegaly. CHEST EXAMINATION: Trachea is central. Symmetrical expansion. Lung valle clear to auscultation and percussion. CARDIAC: Normal S1, S2 with no gallops. No murmurs ABDOMEN: Soft. Bowel sounds normal. No organomegaly. No abdominal bruits. Extremities: reveal no edema. No clubbing or cyanosis Neurologically awake, alert, oriented x3 with well-coordinated movements. No focal deficits noted Skin: No rash or skin lesions. Psychiatric: Coperative. Nonsuicidal Musculoskeletal: No joint swelling or deformity. Normal range of motion. - Labs CBC & Chem 7: 04/27/18 06:29 04/26/18 05:46 Assessment and Plan Assessment: Acute non-ST elevated [place] status post cardiac catheterization and stent placement to RCA Hypotension. Improved Coronary artery disease Possible right lower lobe pneumonia with early infiltrate on chest x-ray Epigastric abdominal pain Hypertension Hyperlipidemia Ongoing nicotine addiction DVT prophylaxis plan: Continue with aspirin statins and Plavix. I added low-dose beta benedict. Patient will be continued on IV hydration due to hypotension. Continue with PPI. Antibiotics were added in the form of Levaquin. Continue to follow closely. Further recommendations based on the clinical course. Cardiology is on board. Time with Patient: Greater than 30
--- NOTE | 2018-05-03 21:41 | P.DS ---
Providers Date of admission: 04/25/18 02:15 Expected date of discharge: 04/27/18 Attending physician: Sydnie San Consults: 04/25/18 02:15 Consult Physician Stat Consulting Provider: Jairo Brizuela Consult Reason/Comments: UA Do you want consulting provider notified?: Already Contacted 04/25/18 03:34 Consult Physician Routine Consulting Provider: [facility] Consult Reason/Comments: Post Interventional patient Do you want consulting provider notified?: Already Contacted Primary care physician: Stated None Hospital Course: Discharge diagnosis Acute non-ST elevated [place] status post cardiac catheterization and stent placement to RCA Hypotension. Improved Coronary artery disease Possible right lower lobe pneumonia with early infiltrate on chest x-ray Epigastric abdominal pain Hypertension Hyperlipidemia Ongoing nicotine addiction DVT prophylaxis Hospital course Patient is a 48 old male with a known history of hypertension, hyperlipidemia and smoking initially presented to ER at an outside hospital facility with complaints of chest pain. Patient says that he was sitting and talking on the phone and he developed sudden left-sided chest pain. No radiation. Associated with sweating and lightheadedness. No shortness of breath. Patient thought pain would get away and waited for approximately an hour and presented to hospital.Evaluation at the outside hospital revealed a normal chest x-ray, mildly elevated troponin. Patient was transferred to [facility] for further evaluation. Patient was treated with doses of fentanyl and nitro. Patient was hypotensive while in the ER. Patient was seen by cardiology and immediately taken to cardiac catheterization. Patient underwent RCA stenting. Currently patient is hypotensive. Denied any chest pain now Patient is complaining of right lower chest pain and epigastric pain. Patient was given a dose of Maalox. Patient continues to have pain which worsens with deep breathing. Chest x-ray showed right lower lobe patchy density possible early infiltrate. WBC 17.6 on admission Patient does not have any fever or chills. No cough or sputum production. No recent illnesses. No sick contacts at home. No recent travel. Patient was given a fluid bolus and is being continued on IV fluids in the form of normal saline. On 04/26/2018 Patient denied any complaints of chest pain or shortness of breath today. Saturating well on room air. No headache or dizziness or lightheadedness. Echocardiogram with Doppler study was performed which revealed an ejection fraction of 55-60%. Blood pressure is improved. Patient was started on low-dose beta blockers. Cardiology is following. Otherwise no acute overnight issues 04/27/18 Continue with aspirin statins and Plavix. Added with low-dose beta benedict. Patient was continued on IV hydration due to hypotension. Blood pressure improved. Continue with PPI. Antibiotics were continued in the form of Levaquin. Hypotension is much improved now. Patient is asymptomatic. Otherwise patient is stable to be discharged home. PHYSICAL EXAMINATION: Patient is lying in the bed comfortably, no acute distress, awake alert and oriented.. HEENT: Normocephalic. Neck is supple. Pupils reactive. Nostrils clear. Oral cavity is moist. Ears reveal no drainage. Neck reveals no JVD, carotid bruits, or thyromegaly. CHEST EXAMINATION: Trachea is central. Symmetrical expansion. Lung valle clear to auscultation and percussion. CARDIAC: Normal S1, S2 with no gallops. No murmurs ABDOMEN: Soft. Bowel sounds normal. No organomegaly. No abdominal bruits. Extremities: reveal no edema. No clubbing or cyanosis Neurologically awake, alert, oriented x3 with well-coordinated movements. No focal deficits noted Skin: No rash or skin lesions. Psychiatric: Coperative. Nonsuicidal Musculoskeletal: No joint swelling or deformity. Normal range of motion. Discharge vitals reviewed. Patient Condition at Discharge: Serious Plan - Discharge Summary Discharge Rx Participant: No New Discharge Prescriptions: New Aspirin 81 mg PO DAILY #30 chew Clopidogrel [Plavix] 75 mg PO DAILY #30 tab Levofloxacin [Levaquin] 500 mg PO Q24H #2 tab Nitroglycerin Sl Tabs [Nitrostat] 0.4 mg SUBLINGUAL Q5M PRN #30 tab PRN Reason: Chest Pain Pantoprazole [Protonix] 40 mg PO AC-BRKFST #28 tablet. Atorvastatin [Lipitor] 80 mg PO HS #30 tab Metoprolol Tartrate [Lopressor] 25 mg PO BID #60 tab Discharge Medication List Aspirin 81 mg PO DAILY #30 chew 04/27/18 [Rx] Atorvastatin [Lipitor] 80 mg PO HS #30 tab 04/27/18 [Rx] Clopidogrel [Plavix] 75 mg PO DAILY #30 tab 04/27/18 [Rx] Levofloxacin [Levaquin] 500 mg PO Q24H #2 tab 04/27/18 [Rx] Metoprolol Tartrate [Lopressor] 25 mg PO BID #60 tab 04/27/18 [Rx] Nitroglycerin Sl Tabs [Nitrostat] 0.4 mg SUBLINGUAL Q5M PRN #30 tab 04/27/18 [Rx ] Pantoprazole [Protonix] 40 mg PO AC-BRKFST #28 tablet. 04/27/18 [Rx] Follow up Appointment(s)/Referral(s): Willie Adams MD [REFERRING] - 3 Days Jairo Brizuela MD [STAFF PHYSICIAN] - 1 Week None,Stated [Primary Care Provider] - 1-2 days Patient Instructions/Handouts: *Surgery [facility] - After Heart Catheterization - Chief Business Officer Instructions Discharge Disposition: HOME SELF-CARE
== END 2018-04-27 14:51 | disposition home or self-care (01) | DRG 246 ==
LOC: EC 23:24 → 3SCARD 04-25 02:15
PROVIDERS: ADMIT Internal Medicine; ATTEND Internal Medicine
PROC: 4A023N7 Measurement of Cardiac Sampling and Pressure, Left Heart, Percutaneous Approach (ICD-10-PCS; principal; 2018-04-25 02:18)
PROC: 02C03ZZ Extirpation of Matter from Coronary Artery, One Artery, Percutaneous Approach (ICD-10-PCS; principal; 2018-04-25 02:18)
PROC: B2111ZZ Fluoroscopy of Multiple Coronary Arteries using Low Osmolar Contrast (ICD-10-PCS; principal; 2018-04-25 02:18)
PROC: 027034Z Dilation of Coronary Artery, One Artery with Drug-eluting Intraluminal Device, Percutaneous Approach (ICD-10-PCS; principal; 2018-04-25 02:18)
PROC: B2151ZZ Fluoroscopy of Left Heart using Low Osmolar Contrast (ICD-10-PCS; principal; 2018-04-25 02:18)
DX: I21.4 Non-ST elevation (NSTEMI) myocardial infarction (principal); J18.9 Pneumonia, unspecified organism; I25.110 Atherosclerotic heart disease of native coronary artery with unstable angina pectoris; E78.5 Hyperlipidemia, unspecified; E86.0 Dehydration; F17.200 Nicotine dependence, unspecified, uncomplicated; I10 Essential (primary) hypertension; Z82.5 Family history of asthma and other chronic lower respiratory diseases; Z71.6 Tobacco abuse counseling; I95.9 Hypotension, unspecified
CPT/HCPCS: 36415; 71045; 74018; 80048; 80053; 82150; 82533; 82550; 82553; 83605; 83690; 83735; 84484; 85025; 85610; 85730; 87040; 93005; 93306; 93458; 96365; 96366; 96372; 96374; 96375; 96376; 99285; C1874

== ENCOUNTER → 2018-06-21 | Outpatient (CLI) | payer BC ==
[2018-06-21 23:21] LABS: LDL Cholesterol,Calculated 89.2 mg/dL (0.0-131.0); VLDL Calculation 26.8 mg/dL (5.00-40.00)
== END | disposition home or self-care (01) ==
LOC: LABWHC1 15:49
PROVIDERS: ATTEND Nurse Practitioner Adult Health
DX: E78.5 Hyperlipidemia, unspecified (principal)
CPT/HCPCS: 36415; 80061

== ENCOUNTER 2018-12-01 11:51 | Emergency (ER) | payer BC, OTHER ==
[2018-12-01] MEDS ORDERED: DIPH,PERTUS(ACELL)TETVAC-LF 0.5 ML VIAL IM ONE (12:45)
[2018-12-01] MEDS ORDERED: CEPHALEXIN 500MG STARTER PACK 4 CAP BTL PO STA (12:45)
[2018-12-01] MEDS ORDERED: LIDOCAINE 1% INJ 10MG/ML (20 ML MDV) SQ ONE (12:46)
--- NOTE | 2018-12-01 13:08 | XR ---
Left hand HISTORY: Laceration first and second metacarpal 3 views of the left hand There is a metallic foreign body superimposed over the thenar eminence measuring approximately 3 mm i n greatest dimension. There is no evident fracture or dislocation. Bone mineralization, joint spaces and alignment are maintained. IMPRESSION: Radiopaque foreign body.
--- NOTE | 2018-12-01 13:49 | ED ---
Wound/Laceration HPI - General Chief Complaint: Wound/Laceration Stated Complaint: hand injury-[facility] Time Seen by Provider: 12/01/18 12:30 Source: patient, RN notes reviewed, old records reviewed Mode of arrival: ambulatory Limitations: no limitations - History of Present Illness Initial Comments: Patient is a 48 year old male with laceration over left hand from work injury. Patient reports metal blade cut his dorsumo f his hand at thumb. Patient reports he needs TDAP. He reports full ROM of fingers and wrist. - Related Data Home Medications Medication Instructions Recorded Confirmed Rosuvastatin Calcium 40 mg PO DAILY 12/01/18 12/01/18 buPROPion SR [Wellbutrin SR] 150 mg PO BID 12/01/18 12/01/18 Previous Rx's Medication Instructions Recorded Cephalexin [Keflex] 500 mg PO Q8HR #21 cap 12/01/18 Allergies Allergy/AdvReac Type Severity Reaction Status Date / Time No Known Allergies Allergy Verified 12/01/18 13:43 Review of Systems ROS Statement: Those systems with pertinent positive or pertinent negative responses have been documented in the HPI. ROS Other: All systems not noted in ROS Statement are negative. Past Medical History Past Medical History: Hypertension, Myocardial Infarction ([place]) History of Any Multi-Drug Resistant Organisms: None Reported Past Surgical History: No Surgical Hx Reported, Heart Catheterization With Stent Additional Past Surgical History / Comment(s): pt stated multiple bone fractures with resetting and casts, no surgical procedures. Past Psychological History: No Psychological Hx Reported Smoking Status: Current every day smoker Past Alcohol Use History: None Reported Past Drug Use History: None Reported - Past Family History Father History Unknown: Yes Family Medical History: Unable to Obtain Mother Family Medical History: COPD, Hyperlipidemia General Exam - General Exam Comments Initial Comments: This is a 48 year old male. Limitations: no limitations General appearance: alert, in no apparent distress Head exam: Present: atraumatic, normocephalic, normal inspection Eye exam: Present: normal appearance, PERRL, EOMI. Absent: scleral icterus, conjunctival injection, periorbital swelling ENT exam: Present: normal exam, mucous membranes moist Neck exam: Present: normal inspection. Absent: tenderness, meningismus, lymphadenopathy Respiratory exam: Present: normal lung sounds bilaterally. Absent: respiratory distress, wheezes, rales, rhonchi, stridor Cardiovascular Exam: Present: regular rate, normal rhythm, normal heart sounds. Absent: systolic murmur, diastolic murmur, rubs, gallop, clicks GI/Abdominal exam: Present: soft, normal bowel sounds. Absent: distended, tenderness, guarding, rebound, rigid Extremities exam: Present: normal inspection, full ROM, normal capillary refill, other (2cm laceration dorsum of left hand. ). Absent: tenderness, pedal edema, joint swelling, calf tenderness Back exam: Present: normal inspection Neurological exam: Present: alert, oriented X3, CN II-XII intact Psychiatric exam: Present: normal affect, normal mood Course Vital Signs 12/01/18 12/01/18 12:27 14:00 Temperature 97.8 F 98.1 F Pulse Rate 61 78 Respiratory 18 16 Rate Blood Pressure 120/74 132/88 O2 Sat by Pulse 96 96 Oximetry Procedures - Laceration Laceration #1 Size (cm): 2 Description: linear Depth: simple, single layer Anesthetic Used: lidocaine 1% Anesthesia Technique: local infiltration Amount (mls): 3 Pre-repair: wound explored, irrigated extensively Type of Sutures: nylon Size of Sutures: 5-0 Number of Sutures: 2 Patient Tolerated Procedure: well, no complications Additional Comments: Attempt to irrigated to remove foreign body but unable to retreive it. Medical Decision Making - Medical Decision Making 48 year old male presents today with laceration from work injury. Patient was hit with a piece off of a grinder chipper. Patient hand has full ROM. Xrays shows radioopaue foreign body. Attempt to remove foreign body in laceration, but unsuccessful. 2 sutures placed over laceration, and advised patient to follow up with ortho hand specialist for foreign body. Discussed return parameters. - Radiology Data Radiology results: report reviewed Left hand xray shows radiopaque foreign body. No fracture. Disposition Clinical Impression: Hand laceration, Soft tissues foreign body Disposition: HOME SELF-CARE Condition: Good Instructions (If sedation given, give patient instructions): Care For Your Stitches (ED) Additional Instructions: Follow-up with primary care physician. Return to the emergency department if any alarming signs or symptoms occur. Take antibiotic as prescribed. Please return to the emergency room in 8-10 days to have sutures removed. Please leave wound covered for the first 24-48 hours and then leave open to air after that time. Please use clean soap and water to clean the suture area to prevent scabbing over the top of your sutures. Please watch for any signs of infection which may include but not limited to increased pain, swelling, redness, fever or chills. Please return to the emergency room if any signs of infection do occur. Please return to the emergency room for any other concerns or complications. Prescriptions: Cephalexin [Keflex] 500 mg PO Q8HR #21 cap Is patient prescribed a controlled substance at d/c from ED?: No Referrals: None,Stated [Primary Care Provider] - 1-2 days Time of Disposition: 13:48
[2018-12-01 14:04] VITALS: BP 132/88; PULSE 78; RESP 16; TEMP 98.1
== END 2018-12-01 14:00 | disposition home or self-care (01) ==
LOC: EC 11:51
DX: S61.422A Laceration with foreign body of left hand, initial encounter (principal); I25.2 Old myocardial infarction; F17.200 Nicotine dependence, unspecified, uncomplicated; Z23 Encounter for immunization; Z95.5 Presence of coronary angioplasty implant and graft; Z79.899 Other long term (current) drug therapy; W26.8XXA Contact with other sharp object(s), not elsewhere classified, initial encounter; Y92.69 Other specified industrial and construction area as the place of occurrence of the external cause; Y99.0 Civilian activity done for income or pay
CPT/HCPCS: 73130; 90715; 99283; 12001; 90471; J2001

== ENCOUNTER 2019-04-12 08:41 | Observation (INO) | payer BC ==
[2019-04-12] MEDS ORDERED: ASPIRIN 81 MG PO STA (09:04)
[2019-04-12] MEDS ORDERED: NITROGLYCERIN OINT 1 INCH/GM PACKET TOPICAL STA (09:04)
--- NOTE | 2019-04-12 09:09 | ED ---
General Adult HPI - General Chief complaint: Chest Pain Stated complaint: back pain, nausea Time Seen by Provider: 04/12/19 08:45 Source: patient, RN notes reviewed, old records reviewed Mode of arrival: ambulatory Limitations: no limitations - History of Present Illness Initial comments: This is a 49-year-old male who presents emergency department with past medical history significant for hyperlipidemia, high blood pressure and a smoking history. Patient states he comes into the emergency department because of intermittent chest pain on and off for a month. Patient states it's at the bottom of his chest anteriorly and it is more of a discomfort/pressure. Patient states he has had no difficulty breathing with it there is been no radiation of the pain. Patient denies any diaphoretic episodes. Patient denies any nausea. Patient states she's also been experiencing some back pain on the right side just below the scapula. Patient states it hurts to press and it hurts to move. Patient states the pain is been on and off for the last 2 weeks. Patient denies any fever chills or cough. Patient denies any abdominal pain. Patient denies a ny nausea vomiting diarrhea. Patient denies any leg swelling or calf tenderness. - Related Data Home Medications Medication Instructions Recorded Confirmed Rosuvastatin Calcium 40 mg PO DAILY 12/01/18 04/12/19 Aspirin EC [Ecotrin Low Dose] 81 mg PO DAILY 04/12/19 04/12/19 Clopidogrel Bisulfate [Plavix] 75 mg PO DAILY 04/12/19 04/12/19 Metoprolol Tartrate [Lopressor] 25 mg PO BID 04/12/19 04/12/19 Allergies Allergy/AdvReac Type Severity Reaction Status Date / Time bee venom protein (honey bee) Allergy Anaphylaxis Verified 04/12/19 09:49 Review of Systems ROS Statement: Those systems with pertinent positive or pertinent negative responses have been documented in the HPI. ROS Other: All systems not noted in ROS Statement are negative. Past Medical History Past Medical History: Hypertension, Myocardial Infarction ([place]) History of Any Multi-Drug Resistant Organisms: None Reported Past Surgical History: Heart Catheterization With Stent Additional Past Surgical History / Comment(s): pt stated multiple bone fractures with resetting and casts, no surgical procedures. Past Psychological History: No Psychological Hx Reported Smoking Status: Current every day smoker Past Alcohol Use History: None Reported Past Drug Use History: None Reported - Past Family History Father History Unknown: Yes Family Medical History: Unable to Obtain Mother Family Medical History: COPD, Hyperlipidemia General Exam - General Exam Comments Initial Comments: GENERAL: Patient is well-developed and well-nourished. Patient is nontoxic and well- hydrated and is in mild distress. ENT: Neck is soft and supple. No significant lymphadenopathy is noted. Oropharynx is clear. Moist mucous membranes. Neck has full range of motion without eliciting any pain. EYES: The sclera were anicteric and conjunctiva were pink and moist. Extraocular movements were intact and pupils were equal round and reactive to light. Eyelids were unremarkable. PULMONARY: Unlabored respirations. Good breath sounds bilaterally. No audible rales rhonchi or wheezing was noted. CARDIOVASCULAR: There is a regular rate and rhythm without any murmurs gallops or rubs. ABDOMEN: Soft and nontender with normal bowel sounds. SKIN: Skin is clear with no lesions or rashes and otherwise unremarkable. NEUROLOGIC: Patient is alert and oriented x3. Cranial nerves II through XII are grossly intact. Motor and sensory are also intact. Normal speech, volume and content. Symmetrical smile. MUSCULOSKELETAL: Normal extremities with adequate strength and full range of motion. LYMPHATICS: No significant lymphadenopathy is noted PSYCHIATRIC: Normal psychiatric evaluation. Limitations: no limitations Course Vital Signs 04/12/19 04/12/19 04/12/19 08:44 09:13 10:45 Temperature 97.5 F L Pulse Rate 82 80 76 Respiratory 18 16 16 Rate Blood Pressure 126/80 137/93 118/83 O2 Sat by Pulse 98 98 99 Oximetry 04/12/19 11:54 Temperature Pulse Rate 70 Respiratory 16 Rate Blood Pressure 126/81 O2 Sat by Pulse 95 Oximetry Medical Decision Making - Medical Decision Making EKG shows normal sinus rhythm at 72 bpm MN interval 134 QRS is 94 QT interval 36 QTC is 422. Patient's EKG shows no ST segment elevation or depression or T wave abnormalities are noted. I will back into the room to talk about the patient's results and at that point time he indicated to me that he did have a heart attack last year as well as a stent which she did not mention to me initially. I recommended the patient stay in the emergency department he was not sure if he wanted to stay but he was still complaining of some right-sided back pain just below the scapula is reproducible on palpation so I gave him some Toradol. Chest x-ray showed no acute abnormality. Patient was started on heparin in the emergency department. I spoke with some physicians he agreed to admit the patient admitted the patient I wrote admitting orders I consult cardiology. - Lab Data Result diagrams: 04/12/19 09:11 04/12/19 09:11 Lab Results 04/12/19 04/12/19 04/12/19 Range/Units 09:11 09:11 09:11 WBC 14.8 H (3.8-10.6) k/uL RBC 6.77 H (4.30-5.90) m/uL Hgb 20.5 H* (13.0-17.5) gm/dL Hct 60.0 H* (39.0-53.0) % MCV 88.7 (80.0-100.0) fL MCH 30.3 (25.0-35.0) pg MCHC 34.1 (31.0-37.0) g/dL RDW 13.1 (11.5-15.5) % Plt Count 266 (150-450) k/uL Neutrophils % 82 % Lymphocytes % 12 % Monocytes % 4 % Eosinophils % 1 % Basophils % 1 % Neutrophils # 12.0 H (1.3-7.7) k/uL Lymphocytes # 1.8 (1.0-4.8) k/uL Monocytes # 0.5 (0-1.0) k/uL Eosinophils # 0.2 (0-0.7) k/uL Basophils # 0.1 (0-0.2) k/uL PT 11.4 (9.0-12.0) sec INR 1.1 (<1.2) APTT 28.1 (22.0-30.0) sec Sodium 139 (137-145) mmol/L Potassium 4.6 (3.5-5.1) mmol/L Chloride 109 H (98-107) mmol/L Carbon Dioxide 22 (22-30) mmol/L Anion Gap 8 mmol/L BUN 14 (9-20) mg/dL Creatinine 0.88 (0.66-1.25) mg/dL Est GFR (CKD-EPI)AfAm >90 (>60 ml/min/1.73 sqM) Est GFR (CKD-EPI)NonAf >90 (>60 ml/min/1.73 sqM) Glucose 106 H (74-99) mg/dL Calcium 9.9 (8.4-10.2) mg/dL Magnesium 2.1 (1.6-2.3) mg/dL Total Bilirubin 0.7 (0.2-1.3) mg/dL AST 22 (17-59) U/L ALT 17 (4-49) U/L Alkaline Phosphatase 81 (38-126) U/L Troponin I (0.000-0.034) ng/mL Total Protein 7.2 (6.3-8.2) g/dL Albumin 4.3 (3.5-5.0) g/dL Amylase 55 (30-110) U/L Lipase 42 (23-300) U/L Urine Color Urine Appearance (Clear) Urine pH (5.0-8.0) Ur Specific Alvin (1.001-1.035) Urine Protein (Negative) Urine Glucose (UA) (Negative) Urine Ketones (Negative) Urine Blood (Negative) Urine Nitrite (Negative) Urine Bilirubin (Negative) Urine Urobilinogen (<2.0) mg/dL Ur Leukocyte Esterase (Negative) 04/12/19 04/12/19 Range/Units 09:11 09:25 WBC (3.8-10.6) k/uL RBC (4.30-5.90) m/uL Hgb (13.0-17.5) gm/dL Hct (39.0-53.0) % MCV (80.0-100.0) fL MCH (25.0-35.0) pg MCHC (31.0-37.0) g/dL RDW (11.5-15.5) % Plt Count (150-450) k/uL Neutrophils % % Lymphocytes % % Monocytes % % Eosinophils % % Basophils % % Neutrophils # (1.3-7.7) k/uL Lymphocytes # (1.0-4.8) k/uL Monocytes # (0-1.0) k/uL Eosinophils # (0-0.7) k/uL Basophils # (0-0.2) k/uL PT (9.0-12.0) sec INR (<1.2) APTT (22.0-30.0) sec Sodium (137-145) mmol/L Potassium (3.5-5.1) mmol/L Chloride (98-107) mmol/L Carbon Dioxide (22-30) mmol/L Anion Gap mmol/L BUN (9-20) mg/dL Creatinine (0.66-1.25) mg/dL Est GFR (CKD-EPI)AfAm (>60 ml/min/1.73 sqM) Est GFR (CKD-EPI)NonAf (>60 ml/min/1.73 sqM) Glucose (74-99) mg/dL Calcium (8.4-10.2) mg/dL Magnesium (1.6-2.3) mg/dL Total Bilirubin (0.2-1.3) mg/dL AST (17-59) U/L ALT (4-49) U/L Alkaline Phosphatase (38-126) U/L Troponin I <0.012 (0.000-0.034) ng/mL Total Protein (6.3-8.2) g/dL Albumin (3.5-5.0) g/dL Amylase (30-110) U/L Lipase (23-300) U/L Urine Color Yellow Urine Appearance Clear (Clear) Urine pH 6.5 (5.0-8.0) Ur Specific Alvin 1.020 (1.001-1.035) Urine Protein Negative (Negative) Urine Glucose (UA) Negative (Negative) Urine Ketones Negative (Negative) Urine Blood Negative (Negative) Urine Nitrite Negative (Negative) Urine Bilirubin Negative (Negative) Urine Urobilinogen 3.0 (<2.0) mg/dL Ur Leukocyte Esterase Negative (Negative) Critical Care Time Critical Care Time: Yes Total Critical Care Time: 35 Disposition Clinical Impression: Unstable angina Disposition: ADMITTED IP TO THIS HOSP Referrals: None,Stated [Primary Care Provider] - 1-2 days
[2019-04-12 09:41] LABS: Basophils # (A) 0.1 k/uL (0-0.2); Basophils % (A) 1 %; Eosinophils # (A) 0.2 k/uL (0-0.7); Eosinophils % (A) 1 %; Lymphocytes # (A) 1.8 k/uL (1.0-4.8); Lymphocytes % (A) 12 %; MCH 30.3 pg (25.0-35.0); MCHC 34.1 g/dL (31.0-37.0); MCV 88.7 fL (80.0-100.0); Mean Platelet Volume 8.9; Monocytes # (A) 0.5 k/uL (0-1.0); Monocytes % (A) 4 %; Neutrophils % (A) 82 %; Platelet Count 266 k/uL (150-450); RBC 6.77 m/uL (4.30-5.90); RDW 13.1 % (11.5-15.5); WBC 14.8 k/uL (3.8-10.6)
[2019-04-12 09:42] LABS: Appearance,Urine Clear (Clear); Bilirubin,Urine Negative (Negative); Blood,Urine Negative (Negative); Color,Urine Yellow; Glucose,Urine (UA) Negative (Negative); Ketones,Urine Negative (Negative); Leukocyte Esterase,Urine Negative (Negative); Nitrite,Urine Negative (Negative); PH, Urine 6.5 (5.0-8.0); Protein,Urine Negative (Negative)
[2019-04-12 09:43] LABS: HGB 20.5 gm/dL (13.0-17.5); INR 1.1 (<1.2); Partial Thromboplastin Time 28.1 sec (22.0-30.0); Prothrombin Time 11.4 sec (9.0-12.0)
[2019-04-12 09:44] LABS: ALT 17 U/L (4-49); AST 22 U/L (17-59); African American GFR (CKD) >90 (>60 ml/min/1.73 sqM); Albumin 4.3 g/dL (3.5-5.0); Alkaline Phosphatase 81 U/L (38-126); Amylase 55 U/L (30-110); Anion Gap 8 mmol/L; Blood Urea Nitrogen 14 mg/dL (9-20); Calcium 9.9 mg/dL (8.4-10.2); Carbon Dioxide 22 mmol/L (22-30); Chloride 109 mmol/L (98-107); Glucose 106 mg/dL (74-99); Magnesium 2.1 mg/dL (1.6-2.3); Non-African American GFR(CKD) >90 (>60 ml/min/1.73 sqM); Potassium 4.6 mmol/L (3.5-5.1); Sodium 139 mmol/L (137-145); Total Bilirubin 0.7 mg/dL (0.2-1.3); Total Protein 7.2 g/dL (6.3-8.2)
--- NOTE | 2019-04-12 09:50 | XR ---
EXAMINATION TYPE: XR chest 2V DATE OF EXAM: 04/12/2019 COMPARISON: Chest x-ray April 25, 2018 HISTORY: Chest and back pain with nausea. TECHNIQUE: Frontal and lateral views of the chest are obtained. FINDINGS: There is right infrahilar opacity similar to prior study adjacent to right heart border. No pleural effusion or pneumothorax is seen bilaterally . Overlying EKG leads are seen. The cardiac s ilhouette size remains within normal limits. The osseous structures are intact. IMPRESSION: Chronic right infrahilar opacity. No new acute infiltrate.
[2019-04-12] MEDS ORDERED: KETOROLAC 60 MG/2 ML VIAL IVP STA (11:47)
[2019-04-12] MEDS ORDERED: HEPARIN SODIUM,PORCINE 5,000 UNIT/ML 1 ML VIAL IV ONE (12:26)
[2019-04-12] MEDS ORDERED: NITROGLYCERIN SL TABS 0.4 MG TAB SUBLINGUAL PRN (12:28)
[2019-04-12] MEDS ORDERED: NICOTINE 21MG/24HR PATCH TRANSDERM STA (12:30)
[2019-04-12] MEDS ORDERED: SODIUM CHLORIDE 0.9% 1,000 ML IV SCH (12:30)
[2019-04-12] MEDS ORDERED: HEPARIN SOD,PORK IN 0.45% NACL 25,000 UNIT in 0.45% NACL 1 250ML.BAG IV SCH (12:30)
[2019-04-12 15:51] LABS: Reticulocyte % 1.7 % (0.5-2.0)
[2019-04-12 16:00] LABS: Uric Acid 6.4 mg/dL (3.5-8.5)
--- NOTE | 2019-04-12 16:42 | P.CONS ---
History of Present Illness - Reason for Consult Consult date: 04/12/19 increased hemoglobin/hematocrit Requesting physician: Epi Wilson - Chief Complaint right back pain, epigastric discomfort - History of Present Illness Mr. Kelly is a very pleasant 49-year-old male with a history of RCA stenting last year, happening about one month after complete extraction of teeth due to severe dental caries. 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 He denies any other medical history, he has never been told he has abnormal lab values, no family history of blood disorders, no personal Hx of cancer. Patient states reason for coming to the hospital was right-sided back pain, 1 week, progressive, associated with dark urine and urinary frequency. Patient has a history of kidney infections, he states that this is similar to that. Noted constipation, denied fever, night sweats, he does have puritis after a hot shower, he states that he drinks 6-7 glasses of water every day and does not feel he is dehydrated, denies nausea or vomiting, the pain in his back can make him mildly nauseated, he does have epigastric discomfort, feels like a "weight" sitting below his sternum, no abdominal distention, black or bloody stool, hematuria or dysuria, swelling in the lower extremities. Patient denies any other pain, he is a current smoker. Review of Systems 14 point review of systems is negative except as stated in HPI Past Medical History Past Medical History: Coronary Artery Disease (CAD), GERD/Reflux, Hypertension, Myocardial Infarction ([place]) Additional Past Medical History / Comment(s): Multiple bone fractures with resettings/castings, polynephritis. Last Myocardial Infarction Date:: 2017 History of Any Multi-Drug Resistant Organisms: None Reported Past Surgical History: Heart Catheterization With Stent, Tonsillectomy Additional Past Surgical History / Comment(s): pt stated multiple bone fractures with resetting and casts, no surgical procedures. Past Anesthesia/Blood Transfusion Reactions: No Reported Reaction Date of Last Stent Placement:: 2017 Past Psychological History: No Psychological Hx Reported Smoking Status: Current every day smoker - Past Family History Father History Unknown: Yes Family Medical History: Unable to Obtain Mother Family Medical History: COPD, Hyperlipidemia Medications and Allergies Home Medications Medication Instructions Recorded Confirmed Type Rosuvastatin Calcium 40 mg PO DAILY 12/01/18 04/12/19 History Aspirin EC [Ecotrin Low Dose] 81 mg PO DAILY 04/12/19 04/12/19 History Clopidogrel Bisulfate [Plavix] 75 mg PO DAILY 04/12/19 04/12/19 History Metoprolol Tartrate [Lopressor] 25 mg PO BID 04/12/19 04/12/19 History Allergies Allergy/AdvReac Type Severity Reaction Status Date / Time bee venom protein (honey bee) Allergy Anaphylaxis Verified 04/12/19 09:49 Physical Exam Vitals: Vital Signs Temp Pulse Pulse Resp BP BP Pulse Ox 04/12/19 16:29 97.7 F 72 19 117/64 94 L 04/12/19 13:47 97.6 F 63 18 134/81 96 04/12/19 13:00 98.5 F 63 18 119/77 97 04/12/19 12:00 97.9 F 59 L 18 116/74 97 04/12/19 11:54 70 16 126/81 95 04/12/19 10:45 76 16 118/83 99 04/12/19 09:13 80 16 137/93 98 04/12/19 08:44 97.5 F L 82 18 126/80 98 Intake and Output 04/12/19 04/12/19 04/12/19 06:59 14:59 22:59 Intake Total 40 Balance 40 Intake: Amount of Fluid Infused ( 40 ml) Other: Weight 83.915 kg - Constitutional General appearance: average body habitus, cooperative, no acute distress - EENT Eyes: anicteric sclerae, EOMI ENT: hearing grossly normal, normal oropharynx - Neck Neck: no lymphadenopathy - Respiratory Respiratory: bilateral: CTA, diminished - Cardiovascular Rhythm: regular Heart sounds: normal: S1, S2 Abnormal Heart Sounds: no systolic murmur, no diastolic murmur, no rub, no S3 Gallop, no S4 Gallop, no click, no other leg Peripheral Edema: bilateral: None - Gastrointestinal General gastrointestinal: no absent bowel sounds, no decreased bowel sounds, no distended, no hepatomegaly, no hyperactive bowel sounds, normal bowel sounds, no organomegaly, no rigid, no scaphoid, soft, no splenomegaly, no tenderness, no umbilical hernia, no ventral hernia - Integumentary Integumentary: flushed - Neurologic Neurologic: CNII-XII intact - Musculoskeletal Musculoskeletal: strength equal bilaterally - Psychiatric Psychiatric: A&O x's 3, appropriate affect, intact judgment & insight Results CBC & Chem 7: 04/12/19 09:11 04/12/19 09:11 Labs: Abnormal Lab Results - Last 24 Hours (Table) 04/12/19 04/12/19 04/12/19 Range/Units 09:11 09:11 15:21 WBC 14.8 H (3.8-10.6) k/uL RBC 6.77 H (4.30-5.90) m/uL Hgb 20.5 H* (13.0-17.5) gm/dL Hct 60.0 H* (39.0-53.0) % Neutrophils # 12.0 H (1.3-7.7) k/uL APTT 37.5 H (22.0-30.0) sec Chloride 109 H (98-107) mmol/L Glucose 106 H (74-99) mg/dL Chest x-ray: report reviewed Assessment and Plan (1) Elevated hemoglobin Current Visit: Yes Status: Acute Priority: High Code(s): D58.2 - OTHER HEMOGLOBINOPATHIES SNOMED Code(s): 644830821 (2) Elevated hematocrit Current Visit: Yes Status: Acute Priority: High Code(s): R71.8 - OTHER ABNORMALITY OF RED BLOOD CELLS SNOMED Code(s): 081780837 Plan: On chart review from last year patient's hemoglobin and hematocrit were within normal limits. Currently patient is mildly neutrophilic, otherwise CBC and CMP are normal. We'll recheck CBC in the a.m. Multiple labs have been requested to evaluate for PV. Pt is on asa, plavix and heparin. No phlebotomy at this time, await some of the lab results. Will f/u in AM.
--- NOTE | 2019-04-12 17:59 | P.HPIM ---
History of Present Illness H&P Date: 04/12/19 Chief Complaint: right flank pain and chest pain The patient is a 49-year-old male with a past medical history of essential hypertension, coronary artery disease with stenting, hyperlipidemia who is also smoker that presented to the ER via private vehicle with chief complaint of chest pain,the patient reports intermittent episodes of infrasternal and midepigastric discomfort more described as pressure without any radiation. Patient also reports some right flank pain over his kidneys that is worsened by movement with radiation at times into his groin The patient denies any associated diaphoresis denies shortness of breath, denies palpitations presyncope or syncope, denies any focal weakness or slurred speech. the patient reports increased frequency, denies dysuria, denies discharge or genital lesions. patient denies any cough or shortness of breath or wheezing In the ER the patient had a comprehensive workup EKG showed sinus mechanism without any suggestion of acute ischemia, troponin was negative at less than 0.012.white count was 14.8 hemoglobin was 20.5, urinalysis was negative. chest x-ray showed a chronic right infrahilar opacity no new acute infiltrate. plan patient is given a dose of aspirin nitroglycerin/ placed on nicotine patch and s tarted on heparin drip and recommended for admission. Past Medical History Past Medical History: Coronary Artery Disease (CAD), GERD/Reflux, Hypertension, Myocardial Infarction ([place]) Additional Past Medical History / Comment(s): Multiple bone fractures with resettings/castings, polynephritis. Last Myocardial Infarction Date:: 2017 History of Any Multi-Drug Resistant Organisms: None Reported Past Surgical History: Heart Catheterization With Stent, Tonsillectomy Additional Past Surgical History / Comment(s): pt stated multiple bone fractures with resetting and casts, no surgical procedures. Past Anesthesia/Blood Transfusion Reactions: No Reported Reaction Date of Last Stent Placement:: 2017 Smoking Status: Current every day smoker - Past Family History Father History Unknown: Yes Family Medical History: Unable to Obtain Mother Family Medical History: COPD, Hyperlipidemia Medications and Allergies Home Medications Medication Instructions Recorded Confirmed Type Rosuvastatin Calcium 40 mg PO DAILY 12/01/18 04/12/19 History Aspirin EC [Ecotrin Low Dose] 81 mg PO DAILY 04/12/19 04/12/19 History Clopidogrel Bisulfate [Plavix] 75 mg PO DAILY 04/12/19 04/12/19 History Metoprolol Tartrate [Lopressor] 25 mg PO BID 04/12/19 04/12/19 History Allergies Allergy/AdvReac Type Severity Reaction Status Date / Time bee venom protein (honey bee) Allergy Anaphylaxis Verified 04/12/19 09:49 Physical Exam Vitals: Vital Signs Temp Pulse Pulse Resp BP BP Pulse Ox 04/12/19 13:47 97.6 F 63 18 134/81 96 04/12/19 13:00 98.5 F 63 18 119/77 97 04/12/19 12:00 97.9 F 59 L 18 116/74 97 04/12/19 11:54 70 16 126/81 95 04/12/19 10:45 76 16 118/83 99 04/12/19 09:13 80 16 137/93 98 04/12/19 08:44 97.5 F L 82 18 126/80 98 Intake and Output 04/11/19 04/12/19 04/12/19 22:59 06:59 14:59 Intake Total 40 Balance 40 Intake: Amount of Fluid Infused ( 40 ml) Other: Weight 83.915 kg Constitutional: No acute distress, conversant, pleasant Eyes: Anicteric sclerae, moist conjunctiva, no lid-lag, PERRLA ENMT: NC/AT,Oropharynx clear, no erythema, exudates Neck:Supple, FROM, no masses, or JVD, No carotid bruits; No thyromegaly Lungs: Clear to auscultation, Clear to percussion, Normal respiratory effort, no accessory muscle use Cardiovascular: Heart regular in rate and rhythm, No murmurs, gallops, or rubs no peripheral edema Abdominal: Soft Nontender, nom distended, no guarding, no rebound or rigidity, Normoactive bowel sounds No hepatomegaly, No splenomegaly, No palpable mass No abdominal wall hernia noted Skin: Normal temperature, tone, texture, turgor, No induration No subcutaneous nodules, No rash, lesions, No ulcers Extremities:No digital cyanosis No clubbing, Pedal pulses intact and symmetrical Radial pulses intact and symmetrical Normal gait and station, No calf tenderness Psychiatric: Alert and oriented to person, place and time, Appropriate affect Intact judgement Neuro: Muscles Strength 5/5 in all 4 extremities, Sensation to light touch grossly present throughout, Cranial nerves II-XII grossly intact. No focal sensory deficits Results CBC & Chem 7: 04/12/19 09:11 04/12/19 09:11 Labs: Abnormal Lab Results - Last 24 Hours (Table) 04/12/19 04/12/19 Range/Units 09:11 09:11 WBC 14.8 H (3.8-10.6) k/uL RBC 6.77 H (4.30-5.90) m/uL Hgb 20.5 H* (13.0-17.5) gm/dL Hct 60.0 H* (39.0-53.0) % Neutrophils # 12.0 H (1.3-7.7) k/uL Chloride 109 H (98-107) mmol/L Glucose 106 H (74-99) mg/dL Thrombosis Risk Factor Assmnt - Choose All That Apply Any of the Below Risk Factors Present?: Yes Each Factor Represents 1 point: Age 41-60 years, Obesity (BMI >25) Other Risk Factors: No Other congenital or acquired thrombophilia - If yes, enter type in comment: No Thrombosis Risk Factor Assessment Total Risk Factor Score: 2 Thrombosis Risk Factor Assessment Level: Low Risk Assessment and Plan Assessment: atypical chest pain right flank pain leukocytosis Polycythemia CAD with stenting Essential hypertension Dyslipidemia Smoking epigastric pain Plan: the patient is placed in observation anticipated less than 2 midnight stay with atypical chest pain and is more epigastric in nature and right flank pain. Initial workup including EKG was negative for any suggestion of acute ischemia and cardiac enzymes have been negative X1. we'll continue to trend enzymes, ch rosalie lipid panel, we'll discontinue IV heparin continue DUAP therapy. echocardiogram as a been ordered and service dismantler consulted from the ER. we'll order CT abdomen and pelvis as the patient is complaining of right flank pain, d-dimer of note was negative. patient was noted to have leukocytosis and polycythemia will consult hematology to rule out polycythemia rubra vera. Of note urinalysis was negative will check blood culture and recheck morning labs. resume his home medications. continue to follow patient's clinical course CODE STATUS: Full code anticipated discharge: 1-2 days Prophylaxis : Subcu heparin and Protonix
[2019-04-12 19:30] VITALS: RESP 18
[2019-04-12] MEDS: HEPARIN SODIUM,PORCINE 5,000 UNIT/ML 1 ML VIAL SQ SCH (20:34)
[2019-04-12] MEDS: METOPROLOL TARTRATE 25 MG TAB PO SCH (20:34)
[2019-04-12] MEDS: MORPHINE SULFATE 2 MG/ML SYRINGE IVP PRN (22:32)
--- NOTE | 2019-04-12 22:50 | CT ---
EXAMINATION TYPE: CT abdomen pelvis wo con DATE OF EXAM: 04/12/2019 COMPARISON: None HISTORY: Right sided flank pain with urination changes. CT DLP: 516.1 mGycm Automated exposure control for dose reduction was used. Multiple axial sections were obtained from the diaphragm to the floor the pelvis with no contrast. Heart size is normal. There is no pericardial effusion. Lung bases are clear of consolidation. There is no pleural effusion. Liver shows no focal defect. Gallbladder appears normal. Spleen is enlarged and measures 15.5 cm. The re is no pancreatic mass. Bile ducts are not dilated. Stomach is intact. There is no adrenal mass. Kidneys have normal size. There is no hydronephrosis. Ureters are not dilat ed. There is no retroperitoneal adenopathy. I see no definite renal calculus. Bladder distends smoothly. There is mild prostatic calcification. There is no inguinal hernia. There is no mesenteric edema. There is no ascites or free air. There is no sign of a bowel obstructio n. Appendix is posterior and appears normal. The lumbar vertebra have normal spacing and alignment. P osterior elements are intact. There is no compression fracture. Bony pelvis is intact. IMPRESSION: Mild splenomegaly. No renal stone or obstruction. Normal appendix..
[2019-04-12 23:43] LABS: % Iron Saturation 16.57 (15.00-50.00)
[2019-04-12 23:53] LABS: Ferritin 10.5 ng/mL (22.0-322.0)
[2019-04-13] MEDS: MORPHINE SULFATE 2 MG/ML SYRINGE IVP PRN (05:45)
[2019-04-13 05:59] LABS: Cholesterol 101 mg/dL (<200); HDL Cholesterol 32 mg/dL (40-60); LDL Cholesterol,Calculated 50 mg/dL (0-99); Triglycerides 94 mg/dL (<150)
[2019-04-13 06:02] LABS: Basophils # (A) 0.1 k/uL (0-0.2); Basophils % (A) 1 %; Eosinophils # (A) 0.3 k/uL (0-0.7); Eosinophils % (A) 2 %; HGB 19.3 gm/dL (13.0-17.5); Hypochromasia Slight; Lymphocytes # (A) 1.8 k/uL (1.0-4.8); Lymphocytes % (A) 15 %; MCH 29.5 pg (25.0-35.0); MCHC 32.8 g/dL (31.0-37.0); MCV 89.8 fL (80.0-100.0); Mean Platelet Volume 8.9; Monocytes # (A) 0.6 k/uL (0-1.0); Monocytes % (A) 5 %; Neutrophils # (A) 9.6 k/uL (1.3-7.7); Neutrophils % (A) 76 %; Platelet Count 261 k/uL (150-450); RBC 6.55 m/uL (4.30-5.90); RDW 13.1 % (11.5-15.5); WBC 12.6 k/uL (3.8-10.6)
[2019-04-13 06:03] LABS: HCT 58.8 % (39.0-53.0)
[2019-04-13] MEDS ORDERED: PANTOPRAZOLE 40 MG TABLET PO SCH (07:30)
[2019-04-13 08:06] VITALS: BP 111/71; PULSE 65; TEMP 98.2
[2019-04-13] MEDS ORDERED: MAG HYDROX/AL HYDROX/SIMETH 30 ML, HYOSCYAMINE ELIXIR 10 ML, LIDOCAINE VISCOUS 2% 10 ML PO ONE ×3 (08:12)
--- NOTE | 2019-04-13 08:42 | P.CRDCN ---
History of Present Illness History of present illness: HISTORY OF PRESENTING ILLNESS This is a pleasant 49-year-old male past medical history significant for coronary artery disease in the setting of a NSTEMI with thrombectomy and stent placement to the distal RCA, hypertension, dyslipidemia and chronic nicotine dependence. He follows in the office with Dr. Brizuela. We have been asked to see in consultation for chest pain. He states for the previous few days he has been experiencing a constant pain in the right flank region. There are periods of worsening pain when he lays flat that improves when he gets up and moves around. However, the pain never completely subsides. There is some radiation at times to the epigastric region described as a pressure. He denies shortness of breath, dizziness, nausea, vomiting or diaphoresis. He has a history of a kidney infection in the past and states this pain feels similar. He denies urinary urgency, frequency or burning with urination. DIAGNOSTICS EKG reveals sinus mechanism with no acute changes. Chest xray chronic right infrahilar opacity. Laboratory reviewed, WBC 14.8, RBC 6.77, hgb 20.5, plt 266, d-dimer 0.29, sodium 139, potassium 4.6, creatinine 0.88, magnesium 2.1, troponin negative x3, urinalysis unremarkable. Current cardiac medications include plavix 75 mg daily, aspirin 81 mg daily, lopressor 25 mg BID and rosuvastatin 40 mg daily. Most recent echocardiogram 03/2018 reveals preserved LV systolic function with EF 55-60%. Cardiac catheterization 04/25/2018 in the setting of NSTEMI revealed occlusion of the distal RCA with a thromus that was successfully aspirated and then stented. REVIEW OF SYSTEMS At the time of my exam: CONSTITUTIONAL: Denies fever or chills. CARDIOVASCULAR: Denies chest pain, shortness of breath, orthopnea, PND or palpitations. RESPIRATORY: Denies cough. GASTROINTESTINAL: Complains of right flank pain. Denies abdominal pain, diarrhe a, constipation, nausea or vomiting. MUSCULOSKELETAL: Denies myalgias. NEUROLOGIC: Denies numbness, tingling or weakness. ENDOCRINE: Denies fatigue, weight change, polydipsia or polyurina. GENITOURINARY: Denies burning, hematuria or urgency with micturation. HEMATOLOGIC: Denies history of anemia or bleeding. PHYSICAL EXAMINATION Blood pressure 134/81 heart rate 63 afebrile and maintaining oxygen saturation on room air. CONSTITUTIONAL: No apparent distress. HEENT: Head is normocephalic. Pupils are equal, round. Sclerae anicteric. Mucous membranes of the mouth are moist. No JVD. No carotid bruit. CHEST EXAMINATION: Lungs are clear to auscultation. No chest wall tenderness is noted on palpation or with deep breathing. HEART EXAMINATION: Regular rate and rhythm. S1, S2 heard. No murmurs, gallops or rub. ABDOMEN: Soft, nontender. Positive bowel sounds. EXTREMITIES: 2+ peripheral pulses, no lower extremity edema and no calf tenderness. NEUROLOGIC EXAMINATION: Patient is awake, alert and oriented x3. ASSESSMENT Chest pain, atypical. An acute event has been ruled out. Flank pain Leukocytosis Polycythemia History of coronary artery disease s/p successfull PCI of the distal RCA History of myocardial infarction Hypertension Dyslipidemia Chronic nicotine dependence PLAN An acute coronary event has been ruled out. Pain is atypical for angina. Ongoing medical management and evaluation of flank pain. Echo has been obtained and will be reviewed. Stable from a cardiac perspective. He already has an appointment scheduled to see Dr. Brizuela in the office next week. Thank you kindly for this consultation. Nurse Practitioner note has been reviewed, I agree with a documented findings and plan of care. Patient was seen and examined. Past Medical History Past Medical History: Coronary Artery Disease (CAD), GERD/Reflux, Hypertension, Myocardial Infarction ([place]) Additional Past Medical History / Comment(s): Multiple bone fractures with resettings/castings, polynephritis. Last Myocardial Infarction Date:: 2017 History of Any Multi-Drug Resistant Organisms: None Reported Past Surgical History: Heart Catheterization With Stent, Tonsillectomy Additional Past Surgical History / Comment(s): pt stated multiple bone fractures with resetting and casts, no surgical procedures. Past Anesthesia/Blood Transfusion Reactions: No Reported Reaction Date of Last Stent Placement:: 2017 Smoking Status: Current every day smoker - Past Family History Father History Unknown: Yes Family Medical History: Unable to Obtain Mother Family Medical History: COPD, Hyperlipidemia Medications and Allergies Home Medications Medication Instructions Recorded Confirmed Type Rosuvastatin Calcium 40 mg PO DAILY 12/01/18 04/12/19 History Aspirin EC [Ecotrin Low Dose] 81 mg PO DAILY 04/12/19 04/12/19 History Clopidogrel Bisulfate [Plavix] 75 mg PO DAILY 04/12/19 04/12/19 History Metoprolol Tartrate [Lopressor] 25 mg PO BID 04/12/19 04/12/19 History Allergies Allergy/AdvReac Type Severity Reaction Status Date / Time bee venom protein (honey bee) Allergy Anaphylaxis Verified 04/12/19 09:49 Physical Exam Vitals: Vital Signs Temp Pulse Pulse Resp BP BP Pulse Ox 04/12/19 13:47 97.6 F 63 18 134/81 96 04/12/19 13:00 98.5 F 63 18 119/77 97 04/12/19 12:00 97.9 F 59 L 18 116/74 97 04/12/19 11:54 70 16 126/81 95 04/12/19 10:45 76 16 118/83 99 04/12/19 09:13 80 16 137/93 98 04/12/19 08:44 97.5 F L 82 18 126/80 98 Intake and Output 04/11/19 04/12/19 04/12/19 22:59 06:59 14:59 Intake Total 40 Balance 40 Intake: Amount of Fluid Infused ( 40 ml) Other: Weight 83.915 kg Results 04/13/19 05:38 04/12/19 09:11 Cardiac Enzymes 04/12/19 04/12/19 Range/Units 09:11 09:11 AST 22 (17-59) U/L Troponin I <0.012 (0.000-0.034) ng/mL Coagulation 04/12/19 Range/Units 09:11 PT 11.4 (9.0-12.0) sec APTT 28.1 (22.0-30.0) sec CBC 04/12/19 Range/Units 09:11 WBC 14.8 H (3.8-10.6) k/uL RBC 6.77 H (4.30-5.90) m/uL Hgb 20.5 H* (13.0-17.5) gm/dL Hct 60.0 H* (39.0-53.0) % Plt Count 266 (150-450) k/uL Comprehensive Metabolic Panel 04/12/19 Range/Units 09:11 Sodium 139 (137-145) mmol/L Potassium 4.6 (3.5-5.1) mmol/L Chloride 109 H (98-107) mmol/L Carbon Dioxide 22 (22-30) mmol/L BUN 14 (9-20) mg/dL Creatinine 0.88 (0.66-1.25) mg/dL Glucose 106 H (74-99) mg/dL Calcium 9.9 (8.4-10.2) mg/dL AST 22 (17-59) U/L ALT 17 (4-49) U/L Alkaline Phosphatase 81 (38-126) U/L Total Protein 7.2 (6.3-8.2) g/dL Albumin 4.3 (3.5-5.0) g/dL Current Medications Generic Name Dose Route Start Last Admin Trade Name Freq PRN Reason Stop Dose Admin Aspirin 81 mg 04/13/19 09:00 Aspirin PO DAILY [facility] Atorvastatin Calcium 80 mg 04/13/19 09:00 Lipitor PO DAILY [facility] Clopidogrel Bisulfate 75 mg 04/13/19 09:00 Plavix PO DAILY [facility] Heparin Sodium/Sodium Chloride 250 mls @ 10.07 mls/hr 04/12/19 12:30 04/12/19 12:41 25,000 unit/ Sodium Chloride IV 12 units/kg/hr .Q24H TIFFANIE 10.07 mls/hr Administration Protocol 12 UNITS/KG/HR Sodium Chloride 1,000 mls @ 20 mls/hr 04/12/19 12:30 04/12/19 12:44 Saline 0.9% IV 20 mls/hr .Q24H TIFFANIE Administration Metoprolol Tartrate 25 mg 04/12/19 21:00 Lopressor PO BID [facility] Nitroglycerin 0.4 mg 04/12/19 12:28 Nitrostat SUBLINGUAL Q5M PRN Chest Pain Intake and Output 04/11/19 04/12/19 04/12/19 22:59 06:59 14:59 Intake Total 40 Balance 40 Intake: Amount of Fluid Infused ( 40 ml) Other: Weight 83.915 kg Patient Weight 04/13/19 06:59 Weight 83.915 kg 04/12/19 09:11 04/12/19 09:11
[2019-04-13] MEDS ORDERED: ATORVASTATIN 80 MG TAB PO SCH (09:00)
[2019-04-13] MEDS ORDERED: NICOTINE 21MG/24HR PATCH TRANSDERM SCH (09:00)
[2019-04-13] MEDS ORDERED: ASPIRIN 81 MG PO SCH (09:00)
[2019-04-13] MEDS ORDERED: ASPIRIN 325 MG TAB PO SCH (09:00)
[2019-04-13] MEDS ORDERED: CLOPIDOGREL 75 MG TAB PO SCH (09:00)
[2019-04-13] MEDS: METOPROLOL TARTRATE 25 MG TAB PO SCH (09:25)
[2019-04-13] MEDS: HEPARIN SODIUM,PORCINE 5,000 UNIT/ML 1 ML VIAL SQ SCH (09:26)
[2019-04-13] MEDS ORDERED: NAPROXEN 250 MG TAB PO STA (10:11)
--- NOTE | 2019-04-13 12:33 | ECHOF ---
Referral Reason:chest pain/cad MEASUREMENTS -------- HEIGHT: 175.3 cm WEIGHT: 83.9 kg BP: 116/74 RVIDd: 3.1 cm (< 3.3) IVSd: 1.1 cm (0.6 - 1.1) LVIDd: 5.2 cm (3.9 - 5.3) LVPWd: 0.9 cm (0.6 - 1.1) IVSs: 1.5 cm LVIDs: 3.7 cm LVPWs: 1.5 cm LA Diam: 3.2 cm (2.7 - 3.8) LAESV Index (A-L): 15.54 ml/m Ao Diam: 2.7 cm (2.0 - 3.7) AV Cusp: 2.1 cm (1.5 - 2.6) MV EXCURSION: 19.176 mm (> 18.000) MV EF SLOPE: 94 mm/s (70 - 150) EPSS: 1.2 cm MV E Santi: 1.01 m/s MV DecT: 188 ms MV A Santi: 0.68 m/s MV E/A Ratio: 1.48 RAP: 15.00 mmHg RVSP: 33.88 mmHg FINDINGS -------- Sinus rhythm. This was a technically good study. The left ventricular size is normal. Left ventricular wall thickness is normal. Overall left vent ricular systolic function is low-normal with, an EF between 50 - 55 %. Apical anterior LV wall zenon on is hypokinetic. The right ventricle is normal in size. Normal LA size by volume 22+/-6 ml/m2. The right atrium is normal in size. Interatrial and interventricular septum intact. The aortic valve is trileaflet and appears structurally normal. There is trace mitral regurgitation. Mild tricuspid regurgitation present. There is borderline pulmonary hypertension. The right ventr icular systolic pressure, as measured by Doppler, is 33.88mmHg. The pulmonic valve was not well visualized. The aortic root size is normal. Normal inferior vena cava with less than 50% inspiratory collapse consistent with estimated right atr ial pressure of 15 mmHg. There is no pericardial effusion. CONCLUSIONS -------- 1. Sinus rhythm. 2. This was a technically good study. 3. The left ventricular size is normal. 4. Left ventricular wall thickness is normal. 5. Overall left ventricular systolic function is low-normal with, an EF between 50 - 55 %. 6. Apical anterior LV wall motion is hypokinetic. 7. The right ventricle is normal in size. 8. Normal LA size by volume 22+/-6 ml/m2. 9. The right atrium is normal in size. 10. Interatrial and interventricular septum intact. 11. The aortic valve is trileaflet and appears structurally normal. 12. There is trace mitral regurgitation. 13. Mild tricuspid regurgitation present. 14. There is borderline pulmonary hypertension. 15. The right ventricular systolic pressure, as measured by Doppler, is 33.88mmHg. 16. The pulmonic valve was not well visualized. 17. The aortic root size is normal. 18. Normal inferior vena cava with less than 50% inspiratory collapse consistent with estimated right atrial pressure of 15 mmHg. 19. There is no pericardial effusion. PIPE LAYER: Radha Priest RDCS
--- NOTE | 2019-04-13 12:40 | P.DS ---
Providers Date of admission: 04/12/19 12:28 Expected date of discharge: 04/13/19 Attending physician: Epi Wilson MD Consults: 04/12/19 12:28 Consult Physician Urgent Consulting Provider: [facility] Consult Reason/Comments: Unstable angina Do you want consulting provider notified?: Yes 04/12/19 12:39 Consult Physician Routine Consulting Provider: Gama Givens Consult Reason/Comments: polycythemia Do you want consulting provider notified?: Yes Primary care physician: Stated None Hospital Course: discharge diagnosis atypical chest pain right flank pain leukocytosis Polycythemia CAD with stenting Essential hypertension Dyslipidemia Smoking epigastric pain hospital course the patient is a 49-year-old male with a past with a history of CAD with stenting in the setting of a non-STEMI with thrombectomy and stent placement of the distal RCA that was admitted and placed on observation status with atypical chest pain/right flank pain and epigastric pain. His workup was largely negative his EKG showed sinus mechanism without suggestion of acute ischemia, all his troponins were negative. Echocardiogram indicated a preserved LVEF of 50-55% without any significant valvular abnormalities. Workup of his right flank pain pointed to a musculoskeletal etiology, CT of his abdomen and pelvis showed no hydronephrosis, or significant intra-abdominal pathology there was mild splenomegaly. The patient was noted to have leukocytosis and polycythemia, hematology was consulted and labs were ordered for initial workup to rule out polycythemia vera. the patient was seen by cardiology and hematology and cleared for discharge with plans to follow up in clinic. The patient was discharged home with new prescriptions for Flexeril and naproxen. Discharge process took approximately 30 minutes. focused exam Cardiovascular: Regular rate and rhythm no murmurs rubs or gallops Patient Condition at Discharge: Good Plan - Discharge Summary Discharge Rx Participant: Yes New Discharge Prescriptions: New Naproxen [EC-Naproxen] 500 mg PO AC-BID #28 tablet. Cyclobenzaprine [Flexeril] 5 mg PO TID PRN #30 tablet PRN Reason: flank pain/muscle spasms Continue Rosuvastatin Calcium 40 mg PO DAILY Metoprolol Tartrate [Lopressor] 25 mg PO BID Clopidogrel Bisulfate [Plavix] 75 mg PO DAILY Aspirin EC [Ecotrin Low Dose] 81 mg PO DAILY Discharge Medication List Rosuvastatin Calcium 40 mg PO DAILY 12/01/18 [History] Aspirin EC [Ecotrin Low Dose] 81 mg PO DAILY 04/12/19 [History] Clopidogrel Bisulfate [Plavix] 75 mg PO DAILY 04/12/19 [History] Metoprolol Tartrate [Lopressor] 25 mg PO BID 04/12/19 [History] Cyclobenzaprine [Flexeril] 5 mg PO TID PRN #30 tablet 04/13/19 [Rx] Naproxen [EC-Naproxen] 500 mg PO AC-BID #28 tablet. 04/13/19 [Rx] Follow up Appointment(s)/Referral(s): Gama Givens MD [STAFF PHYSICIAN] - 3 Weeks (The office will call the patient to make a 3 week appointment.) Jairo Brizuela MD [STAFF PHYSICIAN] - 04/28/19 4:15 pm (Patient follow up with Dr. Brizuela.) None,Stated [Primary Care Provider] - 1-2 days Patient Instructions/Handouts: Chest Pain (DC) Discharge Disposition: HOME SELF-CARE
== END 2019-04-13 12:40 | disposition home or self-care (01) ==
LOC: EC 08:41 → 1SOBS 12:28
PROVIDERS: ADMIT Family Medicine; ATTEND Family Medicine
DX: R07.89 Other chest pain (principal); R10.13 Epigastric pain; D72.829 Elevated white blood cell count, unspecified; D75.1 Secondary polycythemia; E78.5 Hyperlipidemia, unspecified; F17.200 Nicotine dependence, unspecified, uncomplicated; I10 Essential (primary) hypertension; I25.10 Atherosclerotic heart disease of native coronary artery without angina pectoris; I25.2 Old myocardial infarction; Z79.02 Long term (current) use of antithrombotics/antiplatelets; Z79.82 Long term (current) use of aspirin; Z79.899 Other long term (current) drug therapy; Z82.5 Family history of asthma and other chronic lower respiratory diseases; Z95.5 Presence of coronary angioplasty implant and graft; Z91.030 Bee allergy status; Z87.81 Personal history of (healed) traumatic fracture
CPT/HCPCS: 93005 ×2; 96372 ×2; 96375 ×2; 96376; 96374; 99291; 36415; 93306; 85379; 80061; 80053; 82607; 82728; 82150; 83540; 83550; 83615; 83690; 83735; 84550; 84484; 85025 ×2; 85610; 85045; 85730; 81003; 82668; 71046; 74176; G0378 ×2; S4990 ×2; J1644 ×3; J1885; J2270 ×2

== ENCOUNTER → 2021-01-02 | Outpatient (CLI) | payer OTHER | END | disposition home or self-care (01) | LOC: LABWHC1 13:51 | PROVIDERS: ATTEND Family Medicine | DX: D75.1 Secondary polycythemia (principal) | CPT/HCPCS: 36415; 85027 ==

== ENCOUNTER → 2021-01-10 | Outpatient (CLI) | payer OTHER ==
[2021-01-10 15:32] LABS: HCT 70.1 % (39.6-50.0); MCH 28.6 pg (27.0-32.0); MCHC 32.8 g/dL (32.0-37.0); MCV 87.3 fL (80.0-97.0); Mean Platelet Volume 10.8 fL (9.5-12.2); Platelet Count 273 X 10*3/uL (140-440); RBC 8.03 X 10*6/uL (4.40-5.60); RDW 18.7 % (11.5-14.5); WBC 15.87 X 10*3/uL (4.50-10.00)
== END | disposition home or self-care (01) ==
LOC: LABWHC1 10:16
PROVIDERS: ATTEND Family Medicine
DX: D75.1 Secondary polycythemia (principal)
CPT/HCPCS: 36415; 85027

== ENCOUNTER → 2021-02-06 | Outpatient (CLI) | payer OTHER ==
[2021-02-07 01:02] LABS: Reticulocyte % 1.32 % (0.10-1.80)
== END | disposition home or self-care (01) ==
LOC: LABWHC1 15:51
PROVIDERS: ATTEND Internal Medicine Hematology & Oncology
DX: I10 Essential (primary) hypertension (principal); E78.5 Hyperlipidemia, unspecified; D45 Polycythemia vera
CPT/HCPCS: 36415; 81270; 82668; 83021; 85045

== ENCOUNTER 2021-05-20 22:03 | Emergency (ER) | payer OTHER ==
[2021-05-20 22:08] VITALS: TEMP 97.6
[2021-05-20] MEDS ORDERED: SODIUM CHLORIDE 0.9% 1,000 ML IV ONE (23:32)
[2021-05-21 00:54] LABS: Anisocytosis Slight; Basophils # (A) 0.1 k/uL (0-0.2); Basophils % (A) 1 %; Eosinophils # (A) 0.2 k/uL (0-0.7); Eosinophils % (A) 1 %; HCT 38.8 % (39.0-53.0); HGB 11.1 gm/dL (13.0-17.5); Hypochromasia Marked; Lymphocytes # (A) 2.6 k/uL (1.0-4.8); Lymphocytes % (A) 19 %; MCH 19.4 pg (25.0-35.0); MCHC 28.7 g/dL (31.0-37.0); MCV 67.7 fL (80.0-100.0); Mean Platelet Volume 9.4; Microcytosis Marked; Monocytes # (A) 0.7 k/uL (0-1.0); Monocytes % (A) 5 %; Neutrophils # (A) 9.9 k/uL (1.3-7.7); Neutrophils % (A) 71 %; Platelet Count 255 k/uL (150-450); Poikilocytosis Moderate; RBC 5.73 m/uL (4.30-5.90); RDW 16.9 % (11.5-15.5); WBC 13.9 k/uL (3.8-10.6)
[2021-05-21 01:07] LABS: ALT 14 U/L (4-49); AST 35 U/L (17-59); African American GFR (CKD) >90 (>60 ml/min/1.73 sqM); Albumin 3.8 g/dL (3.5-5.0); Alkaline Phosphatase 67 U/L (38-126); Anion Gap 6 mmol/L; Blood Urea Nitrogen 16 mg/dL (9-20); Calcium 8.9 mg/dL (8.4-10.2); Carbon Dioxide 22 mmol/L (22-30); Chloride 108 mmol/L (98-107); Glucose 100 mg/dL (74-99); Lipase 75 U/L (23-300); Non-African American GFR(CKD) >90 (>60 ml/min/1.73 sqM); Potassium 4.4 mmol/L (3.5-5.1); Sodium 136 mmol/L (137-145); Total Bilirubin 0.4 mg/dL (0.2-1.3); Total Protein 6.4 g/dL (6.3-8.2)
--- NOTE | 2021-05-21 01:25 | ED ---
Abdominal Pain HPI - General Source: patient Mode of arrival: ambulatory Limitations: no limitations <Maryann Davison - Last Filed: 05/21/21 01:26> <Jimi Delvalle - Last Filed: 05/21/21 02:20> - General Chief Complaint: Abdominal Pain Stated Complaint: unable to urinate,Black stool - History of Present Illness Initial Comments: 51-year-old male with past medical history of coronary artery disease, polycythemia who presents emergency Department with urinary retention and black stools. He reports that he has not been able to urinate since noon yesterday. He reports that he is been eating and drinking without difficulty however has be en unable to urinate. He also reports that his stools today were dark in coloration. He also admits to some generalized body aches, abdominal pain and nausea. He denies any fevers. Patient is not Covid vaccinated. Admits to a local diagnosis of ulcerative disease in the past however denies ever having an EGD or colonoscopy. Patient does not take any blood thinners. No other alleviating, precipitating or modifying factors (Maryann Davison) - Related Data Home Medications Medication Instructions Recorded Confirmed Rosuvastatin Calcium 40 mg PO DAILY 12/01/18 04/12/19 Aspirin EC [Ecotrin Low Dose] 81 mg PO DAILY 04/12/19 04/12/19 Clopidogrel Bisulfate [Plavix] 75 mg PO DAILY 04/12/19 04/12/19 Metoprolol Tartrate [Lopressor] 25 mg PO BID 04/12/19 04/12/19 Previous Rx's Medication Instructions Recorded Cyclobenzaprine [Flexeril] 5 mg PO TID PRN #30 tablet 04/13/19 Naproxen [EC-Naproxen] 500 mg PO AC-BID #28 tablet. 04/13/19 Allergies Allergy/AdvReac Type Severity Reaction Status Date / Time bee venom protein (honey bee) Allergy Anaphylaxis Verified 05/20/21 22:08 Review of Systems ROS Other: All systems not noted in ROS Statement are negative. <Maryann Davison - Last Filed: 05/21/21 01:26> ROS Other: All systems not noted in ROS Statement are negative. <Jimi Delvalle - Last Filed: 05/21/21 02:20> ROS Statement: Those systems with pertinent positive or pertinent negative responses have been documented in the HPI. Past Medical History Past Medical History: Coronary Artery Disease (CAD), GERD/Reflux, Hypertension, Myocardial Infarction (PR) Additional Past Medical History / Comment(s): Multiple bone fractures with resettings/castings, polynephritis. PB cancer Last Myocardial Infarction Date:: 2017 History of Any Multi-Drug Resistant Organisms: None Reported Past Surgical History: Heart Catheterization With Stent, Tonsillectomy Additional Past Surgical History / Comment(s): pt stated multiple bone fractures with resetting and casts, no surgical procedures. Past Anesthesia/Blood Transfusion Reactions: No Reported Reaction Date of Last Stent Placement:: 2017 Past Psychological History: Depression Smoking Status: Current every day smoker Past Alcohol Use History: None Reported Past Drug Use History: None Reported - Past Family History Father History Unknown: Yes Family Medical History: Unable to Obtain Mother Family Medical History: COPD, Hyperlipidemia <Maryann Davison - Last Filed: 05/21/21 01:26> General Exam Limitations: no limitations <Maryann Davison - Last Filed: 05/21/21 01:26> Course Vital Signs 05/20/21 22:05 Temperature 97.6 F Pulse Rate 85 Respiratory 18 Rate Blood Pressure 126/79 O2 Sat by Pulse 97 Oximetry Medical Decision Making - Lab Data Result diagrams: 05/21/21 00:04 05/21/21 00:04 <Maryann Davison - Last Filed: 05/21/21 01:26> - Lab Data Result diagrams: 05/21/21 00:04 05/21/21 00:04 <Jimi Delvalle - Last Filed: 05/21/21 02:20> - Medical Decision Making Arrival patient is placed into room 15. A thorough history and physical exam is performed. Patient refusing rectal exam. IV is established and laboratory studies are conducted. Patient given a liter bolus of normal saline. He does have a bladder scan performed and only demonstrates 125 mL in his bladder. Laboratory studies are reviewed and demonstrate a hemoglobin of 11.1. White count 13.9. Patient does go for CT. Awaiting CT results. Patient will be signed out to Dr. Oakley (Maryann Davison) - Lab Data Lab Results 05/21/21 05/21/21 05/21/21 Range/Units 00:04 00:04 00:04 WBC 13.9 H (3.8-10.6) k/uL RBC 5.73 (4.30-5.90) m/uL Hgb 11.1 L (13.0-17.5) gm/dL Hct 38.8 L (39.0-53.0) % MCV 67.7 L (80.0-100.0) fL MCH 19.4 L (25.0-35.0) pg MCHC 28.7 L (31.0-37.0) g/dL RDW 16.9 H (11.5-15.5) % Plt Count 255 (150-450) k/uL MPV 9.4 Neutrophils % 71 % Lymphocytes % 19 % Monocytes % 5 % Eosinophils % 1 % Basophils % 1 % Neutrophils # 9.9 H (1.3-7.7) k/uL Lymphocytes # 2.6 (1.0-4.8) k/uL Monocytes # 0.7 (0-1.0) k/uL Eosinophils # 0.2 (0-0.7) k/uL Basophils # 0.1 (0-0.2) k/uL Hypochromasia Marked Poikilocytosis Moderate Anisocytosis Slight Microcytosis Marked PT (9.0-12.0) sec INR (<1.2) APTT (22.0-30.0) sec Sodium 136 L (137-145) mmol/L Potassium 4.4 (3.5-5.1) mmol/L Chloride 108 H (98-107) mmol/L Carbon Dioxide 22 (22-30) mmol/L Anion Gap 6 mmol/L BUN 16 (9-20) mg/dL Creatinine 0.81 (0.66-1.25) mg/dL Est GFR (CKD-EPI)AfAm >90 (>60 ml/min/1.73 sqM) Est GFR (CKD-EPI)NonAf >90 (>60 ml/min/1.73 sqM) Glucose 100 H (74-99) mg/dL Plasma Lactic Acid Berto 0.7 (0.7-2.0) mmol/L Calcium 8.9 (8.4-10.2) mg/dL Total Bilirubin 0.4 (0.2-1.3) mg/dL AST 35 (17-59) U/L ALT 14 (4-49) U/L Alkaline Phosphatase 67 (38-126) U/L Total Protein 6.4 (6.3-8.2) g/dL Albumin 3.8 (3.5-5.0) g/dL Lipase 75 (23-300) U/L Influenza Type A (PCR) (Not Detectd) Influenza Type B (PCR) (Not Detectd) RSV (PCR) (Not Detectd) SARS-CoV-2 (PCR) (Not Detectd) Blood Type Blood Type Confirm Blood Type Recheck Bld Type Recheck Status Antibody Screen Spec Expiration Date 05/21/21 05/21/21 05/21/21 Range/Units 00:04 00:10 00:45 WBC (3.8-10.6) k/uL RBC (4.30-5.90) m/uL Hgb (13.0-17.5) gm/dL Hct (39.0-53.0) % MCV (80.0-100.0) fL MCH (25.0-35.0) pg MCHC (31.0-37.0) g/dL RDW (11.5-15.5) % Plt Count (150-450) k/uL MPV Neutrophils % % Lymphocytes % % Monocytes % % Eosinophils % % Basophils % % Neutrophils # (1.3-7.7) k/uL Lymphocytes # (1.0-4.8) k/uL Monocytes # (0-1.0) k/uL Eosinophils # (0-0.7) k/uL Basophils # (0-0.2) k/uL Hypochromasia Poikilocytosis Anisocytosis Microcytosis PT 10.6 (9.0-12.0) sec INR 1.0 (<1.2) APTT 22.3 (22.0-30.0) sec Sodium (137-145) mmol/L Potassium (3.5-5.1) mmol/L Chloride (98-107) mmol/L Carbon Dioxide (22-30) mmol/L Anion Gap mmol/L BUN (9-20) mg/dL Creatinine (0.66-1.25) mg/dL Est GFR (CKD-EPI)AfAm (>60 ml/min/1.73 sqM) Est GFR (CKD-EPI)NonAf (>60 ml/min/1.73 sqM) Glucose (74-99) mg/dL Plasma Lactic Acid Berto (0.7-2.0) mmol/L Calcium (8.4-10.2) mg/dL Total Bilirubin (0.2-1.3) mg/dL AST (17-59) U/L ALT (4-49) U/L Alkaline Phosphatase (38-126) U/L Total Protein (6.3-8.2) g/dL Albumin (3.5-5.0) g/dL Lipase (23-300) U/L Influenza Type A (PCR) Not Detected (Not Detectd) Influenza Type B (PCR) Not Detected (Not Detectd) RSV (PCR) Not Detected (Not Detectd) SARS-CoV-2 (PCR) Detected A (Not Detectd) Blood Type A Positive Blood Type Confirm Blood Type Recheck No Previous Record Bld Type Recheck Status CABO Indicated Antibody Screen NEGATIVE Spec Expiration Date 05/24/2021 - 230305/21/21 Range/Units 00:45 WBC (3.8-10.6) k/uL RBC (4.30-5.90) m/uL Hgb (13.0-17.5) gm/dL Hct (39.0-53.0) % MCV (80.0-100.0) fL MCH (25.0-35.0) pg MCHC (31.0-37.0) g/dL RDW (11.5-15.5) % Plt Count (150-450) k/uL MPV Neutrophils % % Lymphocytes % % Monocytes % % Eosinophils % % Basophils % % Neutrophils # (1.3-7.7) k/uL Lymphocytes # (1.0-4.8) k/uL Monocytes # (0-1.0) k/uL Eosinophils # (0-0.7) k/uL Basophils # (0-0.2) k/uL Hypochromasia Poikilocytosis Anisocytosis Microcytosis PT (9.0-12.0) sec INR (<1.2) APTT (22.0-30.0) sec Sodium (137-145) mmol/L Potassium (3.5-5.1) mmol/L Chloride (98-107) mmol/L Carbon Dioxide (22-30) mmol/L Anion Gap mmol/L BUN (9-20) mg/dL Creatinine (0.66-1.25) mg/dL Est GFR (CKD-EPI)AfAm (>60 ml/min/1.73 sqM) Est GFR (CKD-EPI)NonAf (>60 ml/min/1.73 sqM) Glucose (74-99) mg/dL Plasma Lactic Acid Berto (0.7-2.0) mmol/L Calcium (8.4-10.2) mg/dL Total Bilirubin (0.2-1.3) mg/dL AST (17-59) U/L ALT (4-49) U/L Alkaline Phosphatase (38-126) U/L Total Protein (6.3-8.2) g/dL Albumin (3.5-5.0) g/dL Lipase (23-300) U/L Influenza Type A (PCR) (Not Detectd) Influenza Type B (PCR) (Not Detectd) RSV (PCR) (Not Detectd) SARS-CoV-2 (PCR) (Not Detectd) Blood Type Blood Type Confirm A Positive Blood Type Recheck Bld Type Recheck Status Antibody Screen Spec Expiration Date Disposition <Maryann Davison - Last Filed: 05/21/21 01:26> Is patient prescribed a controlled substance at d/c from ED?: No <Jimi Delvalle - Last Filed: 05/21/21 02:20> Clinical Impression: COVID-19 Disposition: HOME SELF-CARE Condition: Fair Instructions (If sedation given, give patient instructions): Coronavirus Disease 2019 (COVID-19) Referrals: Yadiel Contreras MD [Primary Care Provider] - 1-2 days
[2021-05-21 01:43] LABS: Partial Thromboplastin Time 22.3 sec (22.0-30.0); Prothrombin Time 10.6 sec (9.0-12.0)
--- NOTE | 2021-05-21 01:52 | CT ---
EXAMINATION TYPE: CT abdomen pelvis w con DATE OF EXAM: 05/21/2021 COMPARISON: 04/12/2019 HISTORY: abdominal pain, black stools, urinary retention. prior without on PACS CT DLP: 824.2 mGycm Automated exposure control for dose reduction was used. CONTRAST: Performed with IV Contrast, patient injected with 100ml mL of Isovue 300. Images obtained from the diaphragm to the floor the pelvis with intravenous contrast. There is some mild posterior interstitial densities at the lung bases. There is no pulmonary consolid ation. Heart appears normal. There is no pericardial effusion. Liver spleen pancreas stomach and gallbladder appear intact. The bile ducts are not dilated. Spleen m easures 13.5 cm. There is no adrenal mass. Kidneys show satisfactory contrast opacification. There is no hydronephrosi s. Delayed images show normal renal excretion. There is no retroperitoneal adenopathy. Bladder disten ds smoothly. There is no inguinal hernia. There is no free fluid in the pelvis. There is no mesenteric edema. There is no ascites or free air. There is no bowel obstruction. The lum bar vertebra have fairly normal spacing and alignment. There is no compression fracture. Bony pelvis is intact. Hip joints are intact. There is some left-sided prostate calcification. IMPRESSION: No acute abnormality in the abdomen and pelvis. Mild interstitial infiltrate at the lung bases. This appears new compared to the old exam. Mild splenomegaly without change. Normal appendix.
[2021-05-21 02:33] VITALS: BP 128/79; PULSE 71; RESP 16
[2021-05-21 02:35] LABS: Appearance,Urine Clear (Clear); Bilirubin,Urine Negative (Negative); Blood,Urine Negative (Negative); Color,Urine Yellow; Glucose,Urine (UA) Negative (Negative); Ketones,Urine Negative (Negative); Leukocyte Esterase,Urine Negative (Negative); Nitrite,Urine Negative (Negative); PH, Urine 5.5 (5.0-8.0); Protein,Urine Trace (Negative); Urobilinogen,Urine <2.0 mg/dL (<2.0)
[2021-05-21 02:52] LABS: Specific Gravity,Urine >1.050 (1.001-1.035)
== END 2021-05-21 02:38 | disposition home or self-care (01) ==
LOC: EC 22:03
DX: U07.1 COVID-19 (principal); I10 Essential (primary) hypertension; I25.2 Old myocardial infarction; I25.10 Atherosclerotic heart disease of native coronary artery without angina pectoris; K21.9 Gastro-esophageal reflux disease without esophagitis; F32.A Depression, unspecified; F17.200 Nicotine dependence, unspecified, uncomplicated; Z79.82 Long term (current) use of aspirin; Z79.899 Other long term (current) drug therapy
CPT/HCPCS: 51798; 36415; 86900; 86901; 80053; 83605; 83690; 85025; 85610; 85730; 86850; 81003; 87636; 74177; 99284; 96360; Q9967

== ENCOUNTER 2022-04-18 07:12 | Day surgery (SDC) | payer OTHER ==
[~2022-04-18 07:12] MED LIST: LACTATED RINGERS 1,000 ML IV SCH; LIDOCAINE 1% (10MG/ML) FOR IV START INTRADERMA PRN
[2022-04-18 07:52] VITALS: TEMP 98
[2022-04-18] MEDS ORDERED: PROPOFOL 10 MG/ML 20 ML VIAL IV ONE (08:46)
[2022-04-18] MEDS ORDERED: LIDOCAINE 2% INJ 20 MG/ML (2 ML VIAL) ONE (08:46)
--- NOTE | 2022-04-18 09:20 | P.PCN ---
Date of Procedure: 04/18/22 Procedure(s) Performed: Brief history: Patient is a pleasant 52-year-old white male scheduled for an elective upper endoscopy as well as colonoscopy as a part of evaluation of Iron deficiency anemia. Procedure performed: Esophagogastroduodenoscopy with biopsy Colonoscopy with snare polypectomy Preoperative diagnosis: Iron deficiency anemia [place] [facility] [place]: After informed consent was obtained from the patient was brought into the endoscopy unit and IV sedation was administered by anesthesia under continuous monitoring. Initially upper endoscopy was done. The Olympus GF 160 video endoscope was inserted inserted into the mouth and esophagus intubated without any difficulty and was gradually advanced into the stomach and duodenum and carefully examined. The bulb and second part of the duodenum appeared normal. Biopsies were done from the duodenum to rule out celiac disease. The scope was then withdrawn into the stomach adequately insufflated with air and upon careful examination the antrum had gastritis and multiple small superficial ulcers measuring between 5 mm and 1 cm in size which were biopsied. Because of the body, cardia and fundus appeared normal. The scope was then withdrawn into the esophagus. The GE junction was located at 41 cm to the incisors. It appeared regular with no erythema erosions or ulcerations. there were several small islands of Victor's appearing mucosa just proximal to the GE junction which was biopsied. Rest of the esophagus appeared normal. Patient tolerated the procedure well. At this time the patient continued to remain sedation. Initial digital rectal examination was normal. Olympus CF 160 video colonoscope was then inserted into the rectum and gradually advanced to the cecum without any difficulty. Careful examination was performed as the scope was gradually being withdrawn. The prep was fair. The cecum appeared normal. In the ascending colon there was a 1 cm and 2 cm polyps removed by snare polypectomy. In the transverse colon there was a 1 cm of polyp removed by snare polypectomy. In the descending colon there was a 5 mm and 1 cm polyp removed by snare polypectomy. In the sigmoid: There were 3 polyps measuring 5 mm in size removed by snare polypectomy. In the rectum there was a 1 cm polyp removed by snare polypectomy. Retroflexion was performed in the rectum and no lesions were noted. Patient tolerated the procedure well. Impression: 1. 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 colonoscopy revealed a) 1 cm and 2 cm ascending colon polyp status post polypectomy b) 1 cm transverse colon polyp status post polypectomy c) 5 mm and 1 mm descending colon polyp status post polypectomy d) 5 millimeters 3 sigmoid polyp status post polypectomy e) 1 cm rectal polyp status post polypectomy Recommendations: Findings of this examination were discussed with the patient as well as his family. He was advised to follow with the biopsy results. Start on Prilosec 20 mg daily and avoid NSAIDs. The biopsies revealed adenoma he can have a repeat colonoscopy in 3 years.
[2022-04-18 09:26] VITALS: RESP 16
[2022-04-18 09:41] VITALS: BP 105/64; PULSE 71
== END 2022-04-18 10:08 | disposition home or self-care (01) ==
LOC: ORWHC2ENDO 07:12
PROVIDERS: ATTEND Internal Medicine Gastroenterology
DX: K29.50 Unspecified chronic gastritis without bleeding (principal); D12.2 Benign neoplasm of ascending colon; K29.00 Acute gastritis without bleeding; K22.70 Barrett's esophagus without dysplasia; D12.3 Benign neoplasm of transverse colon; D12.4 Benign neoplasm of descending colon; D12.5 Benign neoplasm of sigmoid colon; D12.8 Benign neoplasm of rectum; D50.9 Iron deficiency anemia, unspecified; F17.200 Nicotine dependence, unspecified, uncomplicated; I25.2 Old myocardial infarction; I25.10 Atherosclerotic heart disease of native coronary artery without angina pectoris; Z79.01 Long term (current) use of anticoagulants; Z79.899 Other long term (current) drug therapy; Z79.82 Long term (current) use of aspirin; Z95.5 Presence of coronary angioplasty implant and graft
CPT/HCPCS: 88305; 88342; 45385; 43239; J2704; J2001

== ENCOUNTER → 2024-01-08 | Outpatient (CLI) | payer OTHER ==
[~2024-01-08] MED LIST changes: -LACTATED RINGERS 1,000 ML IV SCH; -LIDOCAINE 1% (10MG/ML) FOR IV START INTRADERMA PRN; +SODIUM CHLORIDE 0.9% 500 ML 500 ML in EMPTY BAG 1 BAG IV PRN
[2024-01-08 08:09] VITALS: RESP 16; TEMP 97.9
[2024-01-08 08:44] LABS: Anisocytosis Slight; Basophils # (A) 0.1 k/uL (0-0.2); Basophils % (A) 1 %; Eosinophils # (A) 0.3 k/uL (0-0.7); Eosinophils % (A) 2 %; HCT 49.1 % (39.0-53.0); HGB 14.3 gm/dL (13.0-17.5); Hypochromasia Marked; Lymphocytes # (A) 1.9 k/uL (1.0-4.8); Lymphocytes % (A) 15 %; MCHC 29.2 g/dL (31.0-37.0); MCV 65.1 fL (80.0-100.0); Mean Platelet Volume 8.2; Microcytosis Marked; Monocytes # (A) 0.4 k/uL (0-1.0); Monocytes % (A) 3 %; Neutrophils # (A) 10.3 k/uL (1.3-7.7); Neutrophils % (A) 78 %; Platelet Count 302 k/uL (150-450); Poikilocytosis Slight; RDW 17.9 % (11.5-15.5); WBC 13.2 k/uL (3.8-10.6)
[2024-01-08 08:49] LABS: RBC 7.32 m/uL (4.30-5.90)
[2024-01-08 08:58] VITALS: BP 117/74; PULSE 56
== END ==
LOC: PROCWHC3 07:38
PROVIDERS: ATTEND Internal Medicine Hematology & Oncology
DX: D75.1 Secondary polycythemia (principal)
CPT/HCPCS: 36415; 85025; 99195

== ENCOUNTER → 2024-03-11 | Outpatient (CLI) | payer OTHER ==
[~2024-03-11] MED LIST changes: +SODIUM CHLORIDE 0.9% 250 ML in EMPTY BAG 1 BAG IV PRN
[2024-03-11 07:53] VITALS: RESP 16; TEMP 97.8
[2024-03-11 08:15] LABS: Anisocytosis Slight; Basophils # (A) 0.1 k/uL (0-0.2); Basophils % (A) 0 %; Eosinophils # (A) 0.3 k/uL (0-0.7); Eosinophils % (A) 2 %; HCT 51.3 % (39.0-53.0); HGB 14.8 gm/dL (13.0-17.5); Hypochromasia Marked; Lymphocytes # (A) 1.8 k/uL (1.0-4.8); Lymphocytes % (A) 11 %; MCH 18.8 pg (25.0-35.0); MCHC 28.8 g/dL (31.0-37.0); MCV 65.4 fL (80.0-100.0); Mean Platelet Volume 7.3; Microcytosis Marked; Monocytes # (A) 0.5 k/uL (0-1.0); Monocytes % (A) 3 %; Neutrophils # (A) 13.3 k/uL (1.3-7.7); Neutrophils % (A) 82 %; Platelet Count 355 k/uL (150-450); Poikilocytosis Slight; RDW 17.5 % (11.5-15.5); WBC 16.1 k/uL (3.8-10.6)
[2024-03-11 08:19] LABS: RBC 7.85 m/uL (4.30-5.90)
[2024-03-11 08:41] VITALS: BP 113/72; PULSE 67
== END ==
LOC: PROCWHC3 07:46
PROVIDERS: ATTEND Internal Medicine Hematology & Oncology
DX: D75.1 Secondary polycythemia (principal)
CPT/HCPCS: 36415; 85025; 99195

== ENCOUNTER → 2024-05-06 | Outpatient (CLI) | payer OTHER ==
[2024-05-06 09:40] VITALS: RESP 16; TEMP 97.4
[2024-05-06 09:49] LABS: Anisocytosis Slight; Basophils # (A) 0.1 k/uL (0-0.2); Basophils % (A) 0 %; Eosinophils # (A) 0.3 k/uL (0-0.7); Eosinophils % (A) 2 %; HCT 54.1 % (39.0-53.0); HGB 16.1 gm/dL (13.0-17.5); Hypochromasia Marked; Lymphocytes # (A) 2.1 k/uL (1.0-4.8); Lymphocytes % (A) 11 %; MCH 19.4 pg (25.0-35.0); MCHC 29.7 g/dL (31.0-37.0); MCV 65.3 fL (80.0-100.0); Mean Platelet Volume 7.2; Microcytosis Marked; Monocytes # (A) 0.5 k/uL (0-1.0); Monocytes % (A) 3 %; Neutrophils # (A) 15.8 k/uL (1.3-7.7); Neutrophils % (A) 83 %; Platelet Count 338 k/uL (150-450); Poikilocytosis Slight; RDW 17.3 % (11.5-15.5); WBC 19.1 k/uL (3.8-10.6)
[2024-05-06 10:09] LABS: RBC 8.28 m/uL (4.30-5.90)
[2024-05-06 10:48] VITALS: BP 131/82; PULSE 72
== END ==
LOC: PROCWHC3 09:30
PROVIDERS: ATTEND Internal Medicine Hematology & Oncology
DX: D75.1 Secondary polycythemia (principal)
CPT/HCPCS: 36415; 36593; 85025; 99195